=== PATIENT | female | born 1945 | race African-American/Black ===

== ENCOUNTER → 2016-07-21 | Outpatient (CLI) | payer MEDICARE, OTHER ==
--- NOTE | 2016-07-21 12:15 | WOMENS IMAGING REPORT ---
EXAM DESCRIPTION: BILAT SCREENING MAMMO W/CAD COMPLETED DATE/TIME: 07/21/2016 11:19 am REASON FOR STUDY: Z12.31 ROUTINE SCREENING MAMMO Z12.31 ENCNTR SCREEN MAMMOGRAM FOR MALIGNANT NEOPL ASM OF DUARTE COMPARISON: 2008 to 2014 TECHNIQUE: Standard craniocaudal and mediolateral oblique views of each breast recorded using Dabblea l acquisition. LIMITATIONS: None. FINDINGS: No masses, calcifications or architectural distortion. No areas of suspicion. Read with the assistance of CAD. .[facility] - R2 Cenova Version 1.3 .[facility] Imaging - R2 Cenova Version 1.3 .[facility] - R2 Cenova Version 2.4 .[facility] - R2 Cenova Version 2.4 .[facility] - R2 Openstack Developer Version 9.2 BREAST DENSITY: b. There are scattered areas of fibroglandular density. BIRAD: 1 NEGATIVE RECOMMENDATION: ROUTINE SCREENING COMMENT: PATIENT NOTIFIED BY LETTER. The [employer] recommends an annual screening mammogram for women aged 40 years or over. Each patient will receive a reminder prior to the anniversary date of her mammogram. The [employer] (ACR) has developed recommendations for screening MRI of the breast s in certain patient populations, to be used in conjunction with mammography. Breast MRI surveillanc e may be appropriate for women with more than 20% lifetime risk of developing breast cancer as deter mined by genetic testing, significant family history of the disease, or history of mantle radiation f or Hodgkins Disease. ACR Practice Guidelines 2008. TECHNICAL DOCUMENTATION: FINDING NUMBER: (1) ASSESSMENT: (1) JOB ID: [id number] [employer]- All Rights Reserved
== END ==
LOC: WI 10:01
PROVIDERS: ATTEND Internal Medicine
DX: Z12.31 Encounter for screening mammogram for malignant neoplasm of breast (principal)
CPT/HCPCS: 77067; G0202

== ENCOUNTER → 2016-09-30 | Outpatient (CLI) | payer MEDICARE, OTHER | LOC: RAD 07:35 | PROVIDERS: ATTEND Internal Medicine Gastroenterology | DX: R93.2 Abnormal findings on diagnostic imaging of liver and biliary tract (principal); D18.09 Hemangioma of other sites; Q61.02 Congenital multiple renal cysts | CPT/HCPCS: 74183; A9576 ==

== ENCOUNTER → 2017-02-12 | Outpatient (CLI) | payer MEDICARE, OTHER ==
--- NOTE | 2017-02-12 10:38 | WOMENS IMAGING REPORT ---
EXAM DESCRIPTION: BONE DENSITY HIP/SPINE COMPLETED DATE/TIME: 02/12/2017 9:53 am REASON FOR STUDY: AGE RELATED OSTEOPROSIS; M81.0 M81.0 AGE-RELATED OSTEOPOROSIS W/O CURRENT SUDHEEROLO RUCHI FRA COMPARISON: 06/05/2013 12/21/2005 TECHNIQUE: Dual-Energy X-ray Absorptiometry (DEXA) of the AP Spine and Hip. LIMITATIONS: None. FINDINGS: LUMBAR SPINE: The bone mineral density (BMD) measured from L1-L4 in the AP projection correlates with a T-score of 3.9, which is normal as defined by the World Health Organization. HIP: The bone mineral density (BMD) measured in the left hip correlates with a T-score of 0.7 in the femor al neck, which is normal as defined by the World Health Organization. IMPRESSION: 1. LUMBAR SPINE: Normal 2. HIP: Normal COMMENT: The World Health Organization defines low BMD as follows: T-score: Normal: Greater than -1.0 Osteopenia: Between -1.0 and -2.5 Osteoporosis: Less than -2.5 without fractures Established osteoporosis: Less than -2.5 with fractures In general, you may wish to consider: Diagnosis Treatment Follow-up DEXA Normal BMD Prevention 2-3 years Osteopenia Prevention/Therapy 1-2 years Osteoporosis Therapy Yearly TECHNICAL DOCUMENTATION: JOB ID: [id number]- All Rights Reserved
== END ==
LOC: WI 08:53
PROVIDERS: ATTEND Internal Medicine
DX: M81.0 Age-related osteoporosis without current pathological fracture (principal)
CPT/HCPCS: 77080

== ENCOUNTER → 2017-10-26 | Outpatient (CLI) | payer MEDICARE, OTHER ==
--- NOTE | 2017-10-26 14:39 | WOMENS IMAGING REPORT ---
EXAM DESCRIPTION: BILAT SCREENING MAMMO W/CAD COMPLETED DATE/TIME: 10/26/2017 11:09 am REASON FOR STUDY: ROUTINE SCREENING;Z12.31 Z12.31 ENCNTR SCREEN MAMMOGRAM FOR MALIGNANT NEOPLASM OF DUARTE COMPARISON: [id number] TECHNIQUE: Standard craniocaudal and mediolateral oblique views of each breast recorded using Work Inspirea l acquisition. LIMITATIONS: None. FINDINGS: No masses, calcifications or architectural distortion. No areas of suspicion. Read with the assistance of CAD. .[facility] - R2 Cenova Version 1.3 .[facility] Imaging - R2 Cenova Version 1.[address] Imaging - R2 Cenova Version 2.4 .[facility] - R2 Cenova Version 2.4 .[facility] - R2 Microbiology Lab Technician Version 9.2 IMPRESSION: NORMAL MAMMOGRAM. BIRADS 1. BREAST DENSITY: b. There are scattered areas of fibroglandular density. BIRAD: 1 NEGATIVE RECOMMENDATION: ROUTINE SCREENING COMMENT: The patient has been notified of the results by letter per [place] requirements. Additional no tification policies are in place for contacting patient with suspicious or incomplete findings. Quality ID #[id number]: The [employer] recommends an annual screening mammogram for women aged 40 years or over. This facility utilizes a reminder system to ensure that all patients receive reminder letters, and/or direct phone calls for appointments. This includes reminders for routine scr eening mammograms, diagnostic mammograms, or other Breast Imaging Interventions when appropriate. Th is patient will be placed in the appropriate reminder system. The [employer] (ACR) has developed recommendations for screening MRI of the breast s in certain patient populations, to be used in conjunction with mammography. Breast MRI surveillanc e may be appropriate for women with more than 20% lifetime risk of developing breast cancer as deter mined by genetic testing, significant family history of the disease, or history of mantle radiation f or Hodgkins Disease. ACR Practice Guidelines 2008. TECHNICAL DOCUMENTATION: FINDING NUMBER: (1) ASSESSMENT: (1) JOB ID: [id number] [employer]- All Rights Reserved Reading location - IP/workstation name: [email or web address]
== END ==
LOC: WI 10:33
PROVIDERS: ATTEND Internal Medicine
DX: Z12.31 Encounter for screening mammogram for malignant neoplasm of breast (principal)
CPT/HCPCS: 77067

== ENCOUNTER → 2018-02-11 | Outpatient (CLI) | payer MEDICARE, OTHER | LOC: RAD 06:48 | PROVIDERS: ATTEND Internal Medicine Gastroenterology | DX: D18.03 Hemangioma of intra-abdominal structures (principal); R93.2 Abnormal findings on diagnostic imaging of liver and biliary tract | CPT/HCPCS: 82565 ==

== ENCOUNTER → 2019-01-26 | Outpatient (CLI) | payer MEDICARE, OTHER ==
--- NOTE | 2019-01-26 12:12 | WOMENS IMAGING REPORT ---
EXAM DESCRIPTION: BILAT SCREENING MAMMO W/CAD COMPLETED DATE/TIME: 01/26/2019 11:59 am REASON FOR STUDY: Z12.31 ENCOUNTER FOR SCREENING MAMMOGRAM FOR MALIGNANT NEOPLASM OF BREAST Z12.31 ENCNTR SCREEN MAMMOGRAM FOR MALIGNANT NEOPLASM OF [place]TE COMPARISON: 10/26/2017 and 07/21/2016. EXAM PARAMETERS: Standard craniocaudal and mediolateral oblique views of each breast recorded using digital acquisition. Read with the assistance of CAD. .[facility] - R2 Neurophysiologist Version 9.2 LIMITATIONS: None. FINDINGS: No suspicious masses, suspicious calcifications or architectural distortion. No areas of c oncern. IMPRESSION: Negative MAMMOGRAM. BIRADS 1 BREAST DENSITY: b. There are scattered areas of fibroglandular density. BIRAD: ASSESSMENT: 1 NEGATIVE RECOMMENDATION: ROUTINE SCREENING COMMENT: The patient has been notified of the results by letter per MQSA requirements. Additional no tification policies are in place for contacting patient with suspicious or incomplete findings. Quality ID #[id number]: The [employer] recommends an annual screening mammogram for women aged 40 years or over. This facility utilizes a reminder system to ensure that all patients receive reminder letters, and/or direct phone calls for appointments. This includes reminders for routine scr eening mammograms, diagnostic mammograms, or other Breast Imaging Interventions when appropriate. Th is patient will be placed in the appropriate reminder system. TECHNICAL DOCUMENTATION: FINDING NUMBER: (1) ASSESSMENT: (1) JOB ID: [id number] [employer]- All Rights Reserved Reading location - IP/workstation name: [email or web address]
== END ==
LOC: WI 11:02
PROVIDERS: ATTEND Physician Assistant Medical
DX: Z12.31 Encounter for screening mammogram for malignant neoplasm of breast (principal)
CPT/HCPCS: 77067

== ENCOUNTER 2019-04-04 11:43 | Inpatient (IN) | payer MEDICARE, OTHER ==
--- NOTE | 2019-04-04 11:59 | ER Document Report ---
ED Medical Screen (RME) - General Chief Complaint: Shortness Of Breath Stated Complaint: SHORTNESS OF BREATHE, WEAKNESS Time Seen by Provider: 04/04/19 11:56 Primary Care Provider: MELISSA LEBLANC PA-C [Primary Care Provider] - Follow up as needed Mode of Arrival: Wheelchair Information source: Patient Notes: 73-year-old female presents to ED for weakness metastatic cancer she has a history of liver cancer but is now terminal. She states she is not able to eat she is been very dizzy she is fallen several times in the last [place] couple weeks. Dr. Farris has sent the patient to the emergency room to be admitted. She states that they took her half her liver and her gallbladder out but did cancer is metastatic all over. She is alert oriented but in pain. I have greeted and performed a rapid initial assessment of this patient. A comprehensive ED assessment and evaluation of the patient, analysis of test results and completion of medical decision making process will be conducted by an additional ED providers. TRAVEL OUTSIDE OF THE [place] IN LAST 30 DAYS: No - Related Data Allergies/Adverse Reactions: erythromycin base [Erythromycin Base] Allergy (Verified 04/04/19 11:54) Nausea Past Medical History - Past Medical History Cardiac Medical History: Reports: Hx Hypertension - diovan Denies: Hx Heart Attack Pulmonary Medical History: Denies: Hx Asthma Neurological Medical History: Denies: Hx Cerebrovascular Accident, Hx Seizures GI Medical History: Reports: Hx Ulcer. Denies: Hx Hepatitis, Hx Hiatal Hernia Infectious Medical History: Denies: Hx Hepatitis Past Surgical History: Reports: Hx Hysterectomy. Denies: Hx Mastectomy, Hx Open Heart Surgery, Hx Pacemaker Doctor's Discharge - Discharge Referrals: MELISSA LEBLANC PA-C [Primary Care Provider] - Follow up as needed
[2019-04-04] MEDS ORDERED: NORMAL SALINE IV ONE (13:19)
--- NOTE | 2019-04-04 14:02 | RADIOLOGY REPORT (SQ) ---
EXAM DESCRIPTION: CHEST SINGLE VIEW COMPLETED DATE/TIME: 04/04/2019 1:53 pm REASON FOR STUDY: Short of breath week vomiting COMPARISON: AP view of the chest from 03/18/2011. EXAM PARAMETERS: NUMBER OF VIEWS: One view. TECHNIQUE: Single frontal radiographic view of the chest acquired. RADIATION DOSE: NA LIMITATIONS: None. FINDINGS: The cardiomediastinal silhouette and pulmonary vasculature are within normal limits. Ther e is no consolidation, pleural effusion or pneumothorax. There is no acute abnormality of the imaged osseous structures. IMPRESSION: No acute cardiopulmonary process. TECHNICAL DOCUMENTATION: JOB ID: [id number] [employer]- All Rights Reserved Reading location - IP/workstation name: [email or web address]
[2019-04-04 14:07] LABS: ABSOLUTE EOSINOPHILS # (AUTO) 0.1 10^3/uL (0.0-0.6); ABSOLUTE LYMPHOCYTES (AUTO) 0.7 10^3/uL (0.5-4.7); ABSOLUTE MONOCYTES (AUTO) 0.7 10^3/uL (0.1-1.4); ABSOLUTE NEUT (AUTO) 4.6 10^3/uL (1.7-8.2); BASOPHILS % (AUTO) 0.7 % (0-2); HEMATOCRIT 32.8 % (36.0-47.0); HEMOGLOBIN 10.8 g/dL (12.0-15.5); MEAN CORPUSCULAR HEMOGLOBIN 27.7 pg (27.0-33.4); MEAN CORPUSCULAR HGB CONC 33.1 g/dL (32.0-36.0); MEAN CORPUSCULAR VOLUME 84 fl (80-97); MONOCYTES % (AUTO) 11.3 % (3-13); PLATELET COUNT 429 10^3/uL (150-450); RED BLOOD COUNT 3.91 10^6/uL (3.72-5.28); RED CELL DISTRIBUTION WIDTH 20.9 % (11.5-14.0); TOTAL CELLS COUNTED % (AUTO) 100 %; WHITE BLOOD COUNT 6.1 10^3/uL (4.0-10.5)
[2019-04-04 14:25] LABS: ALBUMIN 2.8 g/dL (3.5-5.0); ALKALINE PHOSPHATASE 288 U/L (38-126); ANION GAP 10 (5-19); ASPARTATE AMINO TRANSFERASE 38 U/L (14-36); BILIRUBIN,DIRECT 0.6 mg/dL (0.0-0.4); BILIRUBIN,TOTAL 1.4 mg/dL (0.2-1.3); BLOOD UREA NITROGEN 33 mg/dL (7-20); CALCIUM 10.1 mg/dL (8.4-10.2); CARBON DIOXIDE 26 mmol/L (22-30); CHLORIDE 100 mmol/L (98-107); GLUCOSE 96 mg/dL (75-110); POTASSIUM 3.4 mmol/L (3.6-5.0); TOTAL PROTEIN 7.9 g/dL (6.3-8.2)
--- NOTE | 2019-04-04 15:06 | ER Document Report ---
ED General - General Chief Complaint: Weakness Stated Complaint: SHORTNESS OF BREATHE, WEAKNESS Time Seen by Provider: 04/04/19 11:56 Primary Care Provider: MELISSA LEBLANC PA-C [Primary Care Provider] - Follow up as needed Mode of Arrival: Wheelchair TRAVEL OUTSIDE OF THE [place] IN LAST 30 DAYS: No - HPI Notes: Patient has stage IV liver cancer and is currently on chemotherapy. Patient presents stating that she feels very weak. She is also having some diffuse body aches. She states this is been going on for several days. The pain and weakness to radiate throughout her body. It is worse with exertion and better with rest. It is severe. She states she just finished a round of chemotherapy in [place]. She states she spoke to Dr. Drake cleary and he recommended that she come to the hospital. Patient denies any dysuria urgency or frequency. No rashes. She has had some nausea no significant vomiting. She has also had some loose stool. - Related Data Allergies/Adverse Reactions: erythromycin base [Erythromycin Base] Allergy (Verified 04/04/19 11:54) Nausea Past Medical History - General Information source: Patient - Social History Smoking Status: Never Smoker Chew tobacco use (# tins/day): No Frequency of alcohol use: None Drug Abuse: None Family History: Reviewed & Not Pertinent Patient has suicidal ideation: No Patient has homicidal ideation: No - Past Medical History Cardiac Medical History: Reports: Hx Hypertension - diovan Denies: Hx Heart Attack Pulmonary Medical History: Denies: Hx Asthma Neurological Medical History: Denies: Hx Cerebrovascular Accident, Hx Seizures GI Medical History: Reports: Hx Ulcer. Denies: Hx Hepatitis, Hx Hiatal Hernia Infectious Medical History: Denies: Hx Hepatitis Past Surgical History: Reports: Hx Hysterectomy. Denies: Hx Mastectomy, Hx Open Heart Surgery, Hx Pacemaker Review of Systems - Review of Systems Constitutional: Malaise, Weakness. denies: Chills, Fever Cardiovascular: denies: Chest pain, Palpitations Respiratory: denies: Cough, Short of breath Gastrointestinal: Abdominal pain, Nausea -: Yes All other systems reviewed and negative Physical Exam - Vital signs Interpretation: Hypotensive - Blood pressures been approximately 100 systolic. Patient has not been tachycardic. - General General appearance: Appears well, Alert - HEENT Head: Normocephalic, Atraumatic Eyes: Normal Pupils: PERRL - Respiratory Respiratory status: No respiratory distress Chest status: Nontender Breath sounds: Normal Chest palpation: Normal - Cardiovascular Rhythm: Regular Heart sounds: Normal auscultation Murmur: No - Abdominal Inspection: Normal Distension: No distension Bowel sounds: Normal Tenderness: Nontender Organomegaly: No organomegaly - Back Back: Normal, Nontender - Extremities General upper extremity: Normal inspection, Nontender, Normal color, Normal ROM, Normal temperature General lower extremity: Normal inspection, Nontender, Normal color, Normal ROM, Normal temperature, Normal weight bearing. No: Joyce's sign - Neurological Neuro grossly intact: Yes Cognition: Normal Orientation: AAOx4 [place] Coma Scale Eye Opening: Spontaneous Hi Coma Scale Verbal: Oriented [place] Coma Scale Motor: Obeys Commands Hi Coma Scale Total: 15 Speech: Normal Motor strength normal: LUE, RUE, LLE, RLE Sensory: Normal - Psychological Associated symptoms: Normal affect, Normal mood - Skin Skin Temperature: Warm Skin Moisture: Dry Skin Color: Normal Course - Re-evaluation Re-evalutation: 04/04/19 15:07 Patient has stage IV liver cancer and has been having a hard time keeping fluids down as well as having no appetite. She states that she feels very weak. Blood pressure here is a proximal 100 systolic. She does not have a fever or white count. I do not find evidence of infection at this time. However lactate and blood cultures are pending. I did speak with Dr. Juan who recommends admission. The hospitalist has accepted the patient for admission. She will be hydrated with fluids. - Laboratory Result Diagrams: 04/04/19 12:45 04/04/19 12:45 Laboratory results interpreted by me: 04/04/19 04/04/19 12:45 12:45 Hgb 10.8 L Hct 32.8 L RDW 20.9 H Lymph % (Auto) 12.0 L Sodium 135.6 L Potassium 3.4 L BUN 33 H Creatinine 1.42 H Est GFR ( Amer) 44 L Est GFR (MDRD) Non-Af 36 L Total Bilirubin 1.4 H Direct Bilirubin 0.6 H AST 38 H Alkaline Phosphatase 288 H Albumin 2.8 L - Diagnostic Test Radiology reviewed: Image reviewed, Reports reviewed - EKG Interpretation by Me EKG shows normal: Sinus rhythm Rate: Normal - 97 Rhythm: NSR Scott/QRS: Left axis deviation Discharge - Discharge Clinical Impression: Dehydration, Weakness Liver cancer Qualifiers: Liver malignancy type: unspecified primary liver malignancy Qualified Code(s): C22.8 - Malignant neoplasm of liver, primary, unspecified as to type Condition: Serious Disposition: ADMITTED INPATIENT Admitting Provider: Duyen (Hospitalist) - Don Day to do admission Unit Admitted: Medical Floor Referrals: MELISSA LEBLANC PA-C [Primary Care Provider] - Follow up as needed
[2019-04-04] MEDS ORDERED: ONDANSETRON 4 MG TAB.RAPDIS PO PRN (15:37)
[2019-04-04] MEDS ORDERED: ONDANSETRON HCL INJ/PF 4 MG/2 ML SDV IV PRN (15:37)
[2019-04-04] MEDS ORDERED: MORPHINE SULFATE 10 MG/ML INJ IV ONE (15:41)
[2019-04-04] MEDS ORDERED: ONDANSETRON 4 MG TAB.RAPDIS PO ONE (15:42)
[2019-04-04 15:48] LABS: VENOUS BLOOD BASE EXCESS 1.6 mmol/L; VENOUS BLOOD HCO3 26.9 mmol/L (20-32); VENOUS BLOOD PCO2 44.8 mmHg (35-63); VENOUS BLOOD PH 7.4 (7.30-7.42)
[2019-04-04] MEDS ORDERED: GLUCAGON,HUMAN RECOMB 1 MG INJ IM PRN (15:52)
[2019-04-04] MEDS ORDERED: DEXTROSE 50%-WATER 25 GM/50 ML DISP.SYRIN IV PRN (15:52)
[2019-04-04] MEDS ORDERED: DEXTROSE 40% GEL 15 GM TUBE PO PRN ×2 (15:52)
--- NOTE | 2019-04-04 16:04 | PDOC H&P ---
History of Present Illness Admission Date/PCP: MELISSA LEBLANC PA-C 73-year-old black female admitted today April 04, 2019, weakness and fatigue History of Present Illness: FREDY ABERNATHY is a 73 year old female who for the last several days has been increasing weakness and fatigue. She is also complained of some diffuse body aches. Patient has denied fever or dysuria. Patient has stage IV liver cancer and just recently finished chemotherapy. She has complained of a decreased appe tite and nausea but no vomiting. Patient's oncologist recommended that she come to the hospital for several days of hydration and further evaluation to rule out infection. His other medical conditions include diabetes, hypertension Past Medical History Cardiac Medical History: Reports: Hypertension - diovan Denies: Myocardial Infarction Pulmonary Medical History: Denies: Asthma Neurological Medical History: Denies: Seizures Endocrine Medical History: Reports: Diabetes Mellitus Type 2 Malignancy Medical History: Reports: Liver Cancer GI Medical History: Denies: Hepatitis, Hiatal Hernia Psychiatric Medical History: Reports: None Hematology: Denies: Anemia, Sickle Cell Disease Past Surgical History Past Surgical History: Reports: Cholecystectomy, Hysterectomy Denies: Amputation, Mastectomy, Pacemaker Social History Smoking Status: Never Smoker - Advance Directive Resuscitation Status: Full Code Family History Family History: Reviewed & Not Pertinent Parental Family History Reviewed: No Children Family History Reviewed: No Sibling(s) Family History Reviewed.: No Medication/Allergy Home Medications: Alendronate Sodium [Fosamax] 70 mg PO DAILY 05/11/11 Aspirin [Aspirin 81 mg Chewable Tablet] 81 mg PO DAILY 05/11/11 Diovan Hct 80-12.5 mg Tablet 1 PO 05/11/11 Esomeprazole Mag Trihydrate [Nexium] 40 mg PO DAILY 05/11/11 Flonase Nasal [place] 50 Mcg/[place] 1 NASL DAILY 05/11/11 Gluc Soriano/Chondro Soriano A/Vit C/Mn [Glucosamine 1,500 Complex Cap] 1 PO 05/11/11 Levothyroxine Sodium [Synthroid] 125 mcg PO DAILY 05/11/11 [place]-3 Fatty Acids/Fish Oil [Fish Oil 1,200 mg Softgel] PO 05/11/11 Allergies/Adverse Reactions: erythromycin base [Erythromycin Base] Allergy (Verified 04/04/19 11:54) Nausea Review of Systems Constitutional: PRESENT: anorexia, weakness. ABSENT: chills, fever(s), headache(s), weight gain, weight loss Cardiovascular: ABSENT: chest pain, dyspnea on exertion, edema, orthropnea, palpitations Respiratory: ABSENT: cough, hemoptysis Gastrointestinal: PRESENT: nausea. ABSENT: abdominal pain, constipation, diarrhea, hematemesis, hematochezia, vomiting Genitourinary: PRESENT: other - Strong odor to urine. ABSENT: dysuria, hematuria Neurological: ABSENT: abnormal gait, abnormal speech, confusion, dizziness, focal weakness, syncope Psychiatric: ABSENT: anxiety, depression, homidical ideation, suicidal ideation Physical Exam Vital Signs: Temp Pulse Resp BP Pulse Ox 97.6 F 13 121/87 H 68 L 04/04/19 13:38 04/04/19 15:01 04/04/19 15:01 04/04/19 14:01 Intake & Output 04/03/19 04/04/19 04/05/19 06:59 06:59 06:59 Weight 93.7 kg General appearance: PRESENT: mild distress, other - Just some generalized weakn ess Respiratory exam: PRESENT: clear to auscultation gricel. ABSENT: rales, rhonchi, wheezes Cardiovascular exam: PRESENT: RRR. ABSENT: diastolic murmur, rubs, systolic murmur Neurological exam: PRESENT: alert, awake, oriented to person, oriented to place, oriented to time, oriented to situation, CN II-XII grossly intact. ABSENT: motor sensory deficit Psychiatric exam: PRESENT: flat affect Results Laboratory Results: 04/04/19 12:45 04/04/19 12:45 04/04/19 04/04/19 12:45 12:45 WBC 6.1 RBC 3.91 Hgb 10.8 L Hct 32.8 L MCV 84 MCH 27.7 MCHC 33.1 RDW 20.9 H Plt Count 429 Seg Neutrophils % 75.0 Sodium 135.6 L Potassium 3.4 L Chloride 100 Carbon Dioxide 26 Anion Gap 10 BUN 33 H Creatinine 1.42 H Est GFR ( Amer) 44 L Glucose 96 Calcium 10.1 Total Bilirubin 1.4 H AST 38 H Alkaline Phosphatase 288 H Total Protein 7.9 Albumin 2.8 L Lipase 62.2 04/04/19 12:45 Troponin I < 0.012 Impressions: Chest X-Ray 04/04/19 11:56 IMPRESSION: No acute cardiopulmonary process. Assessment and Plan - Diagnosis (1) Hypertension Is this a current diagnosis for this admission?: Yes Plan: 04/04/2019 patient had no medicines from home and her bag with her for high blood pressure however in the chart home medicines include Diovan HCT 8012.5 In the emergency room blood pressure 104/71, 98/83, 121/87. Blood pressure meds will be held until she has received more fluids (2) Diabetes Is this a current diagnosis for this admission?: Yes Plan: 04/04/2019 no home medicines were seen in the chart concerning diabetes but she did have a bottle of metformin 500 mg twice daily. Hemoglobin A1c is pending (3) Dehydration Is this a current diagnosis for this admission?: Yes Plan: Patient does appear to be dehydrated with dry mucous membranes and complains of decreased appetite and intake of sodium 135 potassium 3.4 BUN of 33 and creatinine 1.42 Patient will receive gentle hydration. (4) Liver cancer Qualifiers: Liver malignancy type: unspecified primary liver malignancy Qualified Code(s): C22.8 - Malignant neoplasm of liver, primary, unspecified as to type Is this a current diagnosis for this admission?: Yes Plan: 04/04/2019 reportedly patient has stage IV liver cancer. Patient tells me that all is been done that can be done for her illness. In the chart reportedly she did receive chemotherapy recently (5) Weakness Is this a current diagnosis for this admission?: Yes Plan: 119 patient is weak secondary to decreased p.o. intake and possibly UTI - Time Time Spent with patient: 35 or more minutes
[2019-04-04] MEDS: INSULIN LISPRO 100 UNIT/ML 3 ML VIAL SUBCUT SCH ×2 (16:16→21:43)
[2019-04-04 16:29] LABS: INTERNATIONAL RATION (INR) 1.22; PROTHROMBIN TIME 15.5 SEC (11.4-15.4)
[2019-04-04 16:30] LABS: PARTIAL THROMBOPLASTIN TIME 37.6 SEC (23.5-35.8)
[2019-04-04] MEDS: POTASSI CL 20 MEQ/1/2NS 1L 20 MEQ/1,000 ML RTUINJ IV PRN (17:54)
[2019-04-04] MEDS: CEFTRIAXONE 1 GM/D5W RTU 1 GM/50 ML RTUPB IV SCH (20:06)
[2019-04-04] MEDS: METFORMIN HCL 500 MG TABLET PO SCH (20:15)
--- NOTE | 2019-04-04 20:52 | EKG REPORT ---
SEVERITY:- ABNORMAL ECG - SINUS RHYTHM LEFT AXIS DEVIATION NONSPECIFIC T ABNORMALITIES, LATERAL LEADS : Confirmed by: Jeri Saenz MD 04-Apr-2019 20:52:34
[2019-04-04] MEDS ORDERED: MORPHINE SULFATE 10 MG/ML INJ IV PRN ×2 (21:25→21:32)
[2019-04-04] MEDS: MORPHINE SULFATE 10 MG/ML INJ IV PRN (21:41)
[2019-04-04] MEDS: SIMVASTATIN 40 MG TABLET PO SCH (21:42)
[2019-04-04] MEDS: FAMOTIDINE 20 MG TABLET PO SCH (21:42)
[2019-04-04] MEDS: HEPARIN SOD (PORCINE) 5,000 UNIT/ML 1 ML VIAL SUBCUT SCH (21:43)
[2019-04-05] MEDS: POTASSI CL 20 MEQ/1/2NS 1L 20 MEQ/1,000 ML RTUINJ IV PRN ×3 (03:28→17:12)
[2019-04-05 06:03] LABS: APPEARANCE,URINE SLIGHTLY-CLOUDY; BILIRUBIN,URINE SMALL (NEGATIVE); COLOR,URINE AMBER; GLUCOSE, URINE NEGATIVE (NEGATIVE); KETONES,URINE TRACE mg/dL (NEGATIVE); LEUKOCYTE ESTERASE,URINE NEGATIVE (NEGATIVE); NITRITE,URINE NEGATIVE (NEGATIVE); PROTEIN,URINE 100 mg/dL (NEGATIVE); URINE SPECIFIC GRAVITY 1.023
[2019-04-05] MEDS: HEPARIN SOD (PORCINE) 5,000 UNIT/ML 1 ML VIAL SUBCUT SCH ×3 (06:42→21:12)
[2019-04-05 06:44] LABS: ABSOLUTE EOSINOPHILS # (AUTO) 0.1 10^3/uL (0.0-0.6); ABSOLUTE LYMPHOCYTES (AUTO) 0.7 10^3/uL (0.5-4.7); ABSOLUTE MONOCYTES (AUTO) 0.7 10^3/uL (0.1-1.4); ABSOLUTE NEUT (AUTO) 3.9 10^3/uL (1.7-8.2); BASOPHILS % (AUTO) 0.5 % (0-2); EOSINOPHILS % (AUTO) 1.1 % (0-6); HEMATOCRIT 31.2 % (36.0-47.0); HEMOGLOBIN 10.2 g/dL (12.0-15.5); LYMPHOCYTES % (AUTO) 13.3 % (13-45); MEAN CORPUSCULAR HEMOGLOBIN 27.5 pg (27.0-33.4); MEAN CORPUSCULAR HGB CONC 32.8 g/dL (32.0-36.0); MEAN CORPUSCULAR VOLUME 84 fl (80-97); PLATELET COUNT 359 10^3/uL (150-450); RED BLOOD COUNT 3.72 10^6/uL (3.72-5.28); RED CELL DISTRIBUTION WIDTH 21.3 % (11.5-14.0); SEGMENTED NEUTROPHILS % (AUTO) 72.1 % (42-78); TOTAL CELLS COUNTED % (AUTO) 100 %; WHITE BLOOD COUNT 5.4 10^3/uL (4.0-10.5)
[2019-04-05] MEDS: LEVOTHYROXINE SODIUM 0.112 MG TABLET PO SCH (06:44)
[2019-04-05 07:03] LABS: ANION GAP 8 (5-19); BLOOD UREA NITROGEN 36 mg/dL (7-20); CALCIUM 9.4 mg/dL (8.4-10.2); CARBON DIOXIDE 26 mmol/L (22-30); CHLORIDE 102 mmol/L (98-107); GLUCOSE 87 mg/dL (75-110); POTASSIUM 3.6 mmol/L (3.6-5.0)
[2019-04-05] MEDS: INSULIN LISPRO 100 UNIT/ML 3 ML VIAL SUBCUT SCH ×4 (08:01→21:07)
[2019-04-05] MEDS: METFORMIN HCL 500 MG TABLET PO SCH ×2 (09:40→17:07)
[2019-04-05] MEDS: ASPIRIN 81 MG TABLET, ENT COATED PO SCH (09:42)
[2019-04-05] MEDS: FAMOTIDINE 20 MG TABLET PO SCH ×2 (09:42→21:12)
[2019-04-05] MEDS: SERTRALINE HCL 50 MG TABLET PO SCH (09:42)
[2019-04-05] MEDS ORDERED: (PENDING PHARMACY ID) (Sertraline Hcl [Zoloft] 25 MG) PO SCH (10:00)
[2019-04-05] MEDS: MORPHINE SULFATE 10 MG/ML INJ IV PRN (12:00)
[2019-04-05] MEDS: CEFTRIAXONE 1 GM/D5W RTU 1 GM/50 ML RTUPB IV SCH (17:12)
[2019-04-05] MEDS: SIMVASTATIN 40 MG TABLET PO SCH (21:12)
[2019-04-06] MEDS: POTASSI CL 20 MEQ/1/2NS 1L 20 MEQ/1,000 ML RTUINJ IV PRN ×2 (01:44→19:15)
[2019-04-06] MEDS: MORPHINE SULFATE 10 MG/ML INJ IV PRN ×2 (03:35→14:13)
[2019-04-06] MEDS: HEPARIN SOD (PORCINE) 5,000 UNIT/ML 1 ML VIAL SUBCUT SCH ×3 (05:31→21:24)
[2019-04-06] MEDS: LEVOTHYROXINE SODIUM 0.112 MG TABLET PO SCH (05:31)
[2019-04-06] MEDS ORDERED: INFLUENZA QUAD (6MOS+) 2019-20 VAC 0.5 ML SYR IM ONE (08:00)
--- NOTE | 2019-04-06 08:27 | PDOC CONSULTATION ---
Consultation Consult Date: 04/06/19 Attending physician:: JOSÉ MIGUEL CHANDRA Provider Consulted: ROHIT VÁSQUEZ Consult reason:: Known stage IV HCC, here with nausea vomiting dehydration and confusion History of Present Illness Admission Date/PCP: 04/04/19 16:20 MELISSA LEBLANC PA-C Patient complains of: Nausea vomiting, dehydration, confusion, weakness History of Present Illness: FREDY ABERNATHY is a 73 year old female with now about a year and a half histor of HCC, she was originally diagnosed at [place] with the liver metastasis, subsequently was transferred to [facility] and had embolization of the metastasis n because it was bleeding, we then saw her last year and referred her to [facility] in [place] because her son was living there. She was treated with liver resection, but earlier this year unfortunately had a recurrence. She then received some liver directed therapy in [place] as well, the last treatment was in 02/2019. Last month she had reimaging after that and unfortunately had further disease sites in the right paracolic area and left periaortic. Mostly lymphadenopathy. Over the last 3 to 4 weeks she has been complaining of nausea vomiting, dehydration and she did get treated for that at [place], but the patient primarily is always lived here and wanted to come back home. Unfortunately, here, she does not have any true close family support but she does have some friends who live close by. This morning she appears confused, she has some word finding issues, I believe both of these issues are uncommon for her from my previous interactions. However she is receiving morphine regularly here. This is for the pain that she was having and the pain is reasonable because she has disease in the back area that could be compressing nerves. Past Medical History Cardiac Medical History: Reports: Hypertension - diovan Denies: Myocardial Infarction Pulmonary Medical History: Denies: Asthma Neurological Medical History: Denies: Seizures Endocrine Medical History: Reports: Diabetes Mellitus Type 2 Malignancy Medical History: Reports: Liver Cancer GI Medical History: Denies: Hepatitis, Hiatal Hernia Psychiatric Medical History: Reports: None Hematology: Denies: Anemia, Sickle Cell Disease Past Surgical History Past Surgical History: Reports: Cholecystectomy, Hysterectomy Denies: Amputation, Mastectomy, Pacemaker Social History Information Source: Patient Smoking Status: Never Smoker Frequency of Alcohol Use: None Hx Recreational Drug Use: No - Advance Directive Resuscitation Status: Full Code Family History Family History: Reviewed & Not Pertinent Parental Family History Reviewed: Yes Children Family History Reviewed: Yes Sibling(s) Family History Reviewed.: Yes Medication/Allergy Home Medications: Aspirin [Ecotrin 81 mg EC Tablet] 81 mg PO DAILY 04/04/19 Esomeprazole Mag Trihydrate [Nexium] 40 mg PO DAILY 04/04/19 Hydrochlorothiazide [Hydrodiuril 12.5 mg Tablet] 12.5 mg PO DAILY 04/04/19 Levothyroxine Sodium [Synthroid 0.112 mg Tablet] 0.112 mg PO Q6AM 04/04/19 Metformin HCl [Glucophage 500 mg Tablet] 500 mg PO BID 04/04/19 Thompson-3/Dha/Epa/Fish Oil [Thompson-3 Fish Oil 1,200 mg Sfgl] 1,200 mg PO BID 04/04/19 Sertraline HCl [Zoloft] 25 mg PO DAILY 04/04/19 Simvastatin [Zocor 20 mg Tablet] 20 mg PO QHS 04/04/19 Valsartan [Diovan 80 mg Tablet] 80 mg PO DAILY 04/04/19 Allergies/Adverse Reactions: erythromycin base [Erythromycin Base] Allergy (Verified 04/04/19 11:54) Nausea Review of Systems Constitutional: ABSENT: chills, fever(s), headache(s), weight gain, weight loss Eyes: ABSENT: visual disturbances Ears: ABSENT: hearing changes Cardiovascular: ABSENT: chest pain, dyspnea on exertion, edema, orthropnea, palpitations Respiratory: ABSENT: cough, hemoptysis Gastrointestinal: ABSENT: abdominal pain, constipation, diarrhea, hematemesis, hematochezia, nausea, vomiting Genitourinary: ABSENT: dysuria, hematuria Musculoskeletal: ABSENT: joint swelling Integumentary: ABSENT: rash, wounds Neurological: ABSENT: abnormal gait, abnormal speech, confusion, dizziness, focal weakness, syncope Psychiatric: ABSENT: anxiety, depression, homidical ideation, suicidal ideation Endocrine: ABSENT: cold intolerance, heat intolerance, polydipsia, polyuria Hematologic/Lymphatic: ABSENT: easy bleeding, easy bruising Physical Exam Vital Signs: Temp Pulse Resp BP Pulse Ox 97.6 F 51 L 16 104/67 85 L 04/05/19 23:19 04/05/19 23:19 04/05/19 23:19 04/05/19 23:19 10/02/19 23:19 Intake & Output 04/05/19 04/06/19 04/07/19 06:59 06:59 06:59 Intake Total 3860 3558 Output Total 200 200 Balance 3660 3358 Weight 41.9 kg 96.7 kg General appearance: PRESENT: no acute distress, well-developed, well-nourished Head exam: PRESENT: atraumatic, normocephalic Eye exam: PRESENT: conjunctiva pink, EOMI, PERRLA. ABSENT: scleral icterus Ear exam: PRESENT: normal external ear exam Mouth exam: PRESENT: moist, tongue midline Neck exam: ABSENT: carotid bruit, JVD, lymphadenopathy, thyromegaly Respiratory exam: PRESENT: clear to auscultation gricel. ABSENT: rales, rhonchi, wheezes Cardiovascular exam: PRESENT: RRR. ABSENT: diastolic murmur, rubs, systolic murmur Pulses: PRESENT: normal dorsalis pedis pul Vascular exam: PRESENT: normal capillary refill GI/Abdominal exam: PRESENT: normal bowel sounds, soft. ABSENT: distended, guarding, mass, organolmegaly, rebound, tenderness Rectal exam: PRESENT: deferred Extremities exam: PRESENT: full ROM. ABSENT: calf tenderness, clubbing, pedal edema Neurological exam: PRESENT: alert, awake, oriented to person, oriented to place, oriented to time, oriented to situation, CN II-XII grossly intact. ABSENT: motor sensory deficit Psychiatric exam: PRESENT: appropriate affect, normal mood. ABSENT: homicidal ideation, suicidal ideation Skin exam: PRESENT: dry, intact, warm. ABSENT: cyanosis, rash Results Laboratory Results: 04/05/19 06:29 04/05/19 06:29 04/04/19 12:45 Troponin I < 0.012 Impressions: Chest X-Ray 04/04/19 11:56 IMPRESSION: No acute cardiopulmonary process. Assessment & Plan - Diagnosis (1) Liver cancer Qualifiers: Liver malignancy type: hepatocellular carcinoma Qualified Code(s): C22.0 - Liver cell carcinoma Is this a current diagnosis for this admission?: Yes Plan: Hepatocellular carcinoma, in the setting of a never drinker, and no hep C, her next consideration of care would be oral drug called Nexavar, we have discussed this before and she is discussed this at [facility], I spoke to her son about this and he did not really think that she would want that, I discussed it with her this morning and she is unsure about it but also intermittently confused. To that extent I would like to send her for an MRI of the brain today, I will get physical therapy involved as well. I will call her son and try and see what ultimate arrangements will be need to be made. - Time Time Spent: Greater than 70 Minutes - Inpatient Certification Based on my medical assessment, after consideration of the patient's comorbidities, presenting symptoms, or acuity I expect that the services needed warrant INPATIENT care.: Yes I certify that my determination is in accordance with my understanding of Medicare's requirements for reasonable and necessary INPATIENT services [42 CFR 412.3e].: Yes Medical Necessity: Need For Continuous Telemetry Monitoring, Risk of Complic ation if Not Cared For in Hospital
[2019-04-06] MEDS: INSULIN LISPRO 100 UNIT/ML 3 ML VIAL SUBCUT SCH ×4 (08:55→21:30)
[2019-04-06] MEDS ORDERED: ONDANSETRON HCL INJ/PF 4 MG/2 ML SDV IV PRN (09:00)
[2019-04-06] MEDS ORDERED: ONDANSETRON 4 MG TAB.RAPDIS PO PRN (09:00)
[2019-04-06] MEDS: SERTRALINE HCL 50 MG TABLET PO SCH (09:28)
[2019-04-06] MEDS: METFORMIN HCL 500 MG TABLET PO SCH ×2 (09:28→17:07)
[2019-04-06] MEDS: ASPIRIN 81 MG TABLET, ENT COATED PO SCH (09:29)
[2019-04-06] MEDS: FAMOTIDINE 20 MG TABLET PO SCH ×2 (09:29→21:24)
--- NOTE | 2019-04-06 11:45 | PDOC PROGRESS REPORT ---
Subjective Progress Note for:: 04/06/19 Subjective:: 04/06/2019 Patient was admitted for dehydration, weakness, decreased appetite and nausea Patient has a history of diabetes as well as hypertension. Also has a history of stage IV liver cancer. Reason For Visit: DEHYDRATION,STAGE IV LIVER CANCER,DIABETES, Physical Exam Vital Signs: Temp Pulse Resp BP Pulse Ox 97.4 F 91 16 110/71 92 04/06/19 07:57 04/06/19 07:57 04/06/19 07:57 04/06/19 07:57 04/06/19 07:57 Intake & Output 04/05/19 04/06/19 04/07/19 06:59 06:59 06:59 Intake Total 3860 3558 Output Total 200 200 Balance 3660 3358 Weight 41.9 kg 96.7 kg General appearance: PRESENT: no acute distress, other - Intermittent times of confusion Respiratory exam: PRESENT: clear to auscultation gricel. ABSENT: rales, rhonchi, wheezes Cardiovascular exam: PRESENT: RRR. ABSENT: diastolic murmur, rubs, systolic murmur Neurological exam: PRESENT: alert, altered Psychiatric exam: PRESENT: appropriate affect, normal mood. ABSENT: homicidal ideation, suicidal ideation Results Laboratory Results: 04/05/19 06:29 04/05/19 06:29 04/04/19 12:45 Troponin I < 0.012 Impressions: Chest X-Ray 04/04/19 11:56 IMPRESSION: No acute cardiopulmonary process. Assessment and Plan - Diagnosis (1) Hypertension Is this a current diagnosis for this admission?: Yes (2) Diabetes Is this a current diagnosis for this admission?: Yes (3) Dehydration Is this a current diagnosis for this admission?: Yes (4) Liver cancer Qualifiers: Liver malignancy type: hepatocellular carcinoma Qualified Code(s): C22.0 - Liver cell carcinoma Is this a current diagnosis for this admission?: Yes (5) Weakness Is this a current diagnosis for this admission?: Yes - Plan Summary Summary: 04/06/2019 labs today are actually stable, urine and blood cultures showed no growth in 24 hours, x-ray from admission shows no cardiopulmonary disease. Oncology has ordered a MRI of the brain which I agree with,to look for metastases. Continue IV fluids but decrease the rate to 100/h. 10 you sliding scale of insulin, continue IV Rocephin, - Time Time Spent with patient: 25-34 minutes
--- NOTE | 2019-04-06 16:29 | RADIOLOGY REPORT (SQ) ---
EXAM DESCRIPTION: MRI HEAD COMBO COMPLETED DATE/TIME: 04/06/2019 3:26 pm REASON FOR STUDY: CA METASTASIS COMPARISON: Chest film 04/04/2019 TECHNIQUE: Multiplanar imaging includes noncontrasted T1, T2, FLAIR, diffusion with ADC map and post gadolinium contrast T1 sequences. Images stored on PACS. CONTRAST TYPE AND DOSE: 15 mL Dotarem. RENAL FUNCTION: Not indicated. ACR Type II contrast agent associated with few, if any, unconfounded cases of NSF LIMITATIONS: Motion artifact throughout the study FINDINGS: There is motion artifact throughout the study. On images without motion artifact, patient has had an old left frontal craniotomy. There is a focal area of encephalomalacia left frontal cortex and subcortical region measuring about 2 cm in diameter. Superior to this area of encephalomalacia, there is a single enhancing cortical nodule about 5 mm i n size on axial series 11, image 21. This is abnormal but nonspecific. In the proper clinical setti ng this could represent either a tiny cortical infarct or tiny metastatic lesion. Remainder of the study is severely degraded by patient motion artifact. No large territory acute isc hemic change. No gross midline shift or mass effect. IMPRESSION: Very limited study due to motion artifact. Old left frontal craniotomy with 2 cm area of encephalomalacia in the anterior left frontal lobe. Soriano perior to this area, a 5 mm enhancing left frontal cortical nodule is present. This could represent a tiny metastatic lesion. Tiny cortical infarct is possible. Repeat MRI is recommended when the patient is able to comply with imaging. EVIDENCE OF ACUTE STROKE: No large territory infarct. Findings as above. TECHNICAL DOCUMENTATION: JOB ID: [id number] [employer]- All Rights Reserved Reading location - IP/workstation name: [email or web address]
[2019-04-06] MEDS: CEFTRIAXONE 1 GM/D5W RTU 1 GM/50 ML RTUPB IV SCH (17:30)
[2019-04-06] MEDS: SIMVASTATIN 40 MG TABLET PO SCH (21:23)
[2019-04-07] MEDS: HEPARIN SOD (PORCINE) 5,000 UNIT/ML 1 ML VIAL SUBCUT SCH ×3 (06:14→22:20)
[2019-04-07] MEDS: POTASSI CL 20 MEQ/1/2NS 1L 20 MEQ/1,000 ML RTUINJ IV PRN ×2 (06:18→17:50)
[2019-04-07] MEDS: LEVOTHYROXINE SODIUM 0.112 MG TABLET PO SCH (06:18)
[2019-04-07] MEDS: INSULIN LISPRO 100 UNIT/ML 3 ML VIAL SUBCUT SCH ×4 (07:56→22:20)
[2019-04-07] MEDS: DEXTROSE 50%-WATER 25 GM/50 ML DISP.SYRIN IV PRN ×2 (07:58→16:24)
--- NOTE | 2019-04-07 08:54 | PDOC PROGRESS REPORT ---
Subjective Progress Note for:: 04/07/19 Subjective:: Patient still very confused this morning, [facility] is planning to meet son tomorrow morning. MRI was done but there was a lot of motion artifact because patient was moving quite a bit, there is seems to be either a small area of metastasis versus infarct. Recommended to hospitalist team to consider better sedating her to go ahead and get the MRI so that we have an answer on this for family. Reason For Visit: DEHYDRATION,STAGE IV LIVER CANCER,DIABETES, Physical Exam Vital Signs: Temp Pulse Resp BP Pulse Ox 97.4 F 96 16 108/60 94 04/07/19 01:01 04/07/19 01:01 04/07/19 01:01 04/07/19 01:01 04/07/19 01:01 Intake & Output 04/06/19 04/07/19 04/08/19 06:59 06:59 06:59 Intake Total 3558 2404 Output Total 200 225 Balance 3358 2179 Weight 96.7 kg 95.8 kg General appearance: PRESENT: no acute distress, well-developed, well-nourished Head exam: PRESENT: atraumatic, normocephalic Eye exam: PRESENT: conjunctiva pink, EOMI, PERRLA. ABSENT: scleral icterus Ear exam: PRESENT: normal external ear exam Mouth exam: PRESENT: moist, tongue midline Neck exam: ABSENT: carotid bruit, JVD, lymphadenopathy, thyromegaly Respiratory exam: PRESENT: clear to auscultation gricel. ABSENT: rales, rhonchi, wheezes Cardiovascular exam: PRESENT: RRR. ABSENT: diastolic murmur, rubs, systolic murmur Pulses: PRESENT: normal dorsalis pedis pul Vascular exam: PRESENT: normal capillary refill GI/Abdominal exam: PRESENT: normal bowel sounds, soft. ABSENT: distended, guarding, mass, organolmegaly, rebound, tenderness Rectal exam: PRESENT: deferred Extremities exam: PRESENT: full ROM. ABSENT: calf tenderness, clubbing, pedal edema Neurological exam: PRESENT: alert, awake, oriented to person, oriented to place, oriented to time, oriented to situation, CN II-XII grossly intact. ABSENT: motor sensory deficit Psychiatric exam: PRESENT: appropriate affect, normal mood. ABSENT: homicidal ideation, suicidal ideation Skin exam: PRESENT: dry, intact, warm. ABSENT: cyanosis, rash Results Laboratory Results: 04/05/19 06:29 04/05/19 06:29 04/04/19 12:45 Troponin I < 0.012 Impressions: Chest X-Ray 04/04/19 11:56 IMPRESSION: No acute cardiopulmonary process. Head MRI 04/06/19 00:00 IMPRESSION: Very limited study due to motion artifact. Old left frontal craniotomy with 2 cm area of encephalomalacia in the anterior left frontal lobe. Superior to this area, a 5 mm enhancing left frontal cortical nodule is present. This could represent a tiny metastatic lesion. Tiny cortical infarct is possible. Repeat MRI is recommended when the patient is able to comply with imaging. EVIDENCE OF ACUTE STROKE: No large territory infarct. Findings as above. Assessment & Plan - Diagnosis (1) Liver cancer Qualifiers: Liver malignancy type: hepatocellular carcinoma Qualified Code(s): C22.0 - Liver cell carcinoma Is this a current diagnosis for this admission?: Yes Plan: MRI of the brain repeat today most likely, hospice meeting tomorrow with family, today spent 45 minutes in discussion and coordination of care.
[2019-04-07] MEDS: METFORMIN HCL 500 MG TABLET PO SCH ×2 (09:36→17:12)
[2019-04-07] MEDS: ASPIRIN 81 MG TABLET, ENT COATED PO SCH (09:37)
[2019-04-07] MEDS: FAMOTIDINE 20 MG TABLET PO SCH ×2 (09:37→22:21)
[2019-04-07] MEDS: SERTRALINE HCL 50 MG TABLET PO SCH (09:37)
[2019-04-07] MEDS: MORPHINE SULFATE 10 MG/ML INJ IV PRN (13:36)
[2019-04-07] MEDS ORDERED: NORMAL SALINE 1000 ML 1,000 ML IV ONE (15:40)
--- NOTE | 2019-04-07 15:48 | PDOC PROGRESS REPORT ---
Subjective Progress Note for:: 04/07/19 Subjective:: 04/06/2019 Patient was admitted for dehydration, weakness, decreased appetite and nausea Patient has a history of diabetes as well as hypertension. Also has a history of stage IV liver cancer. 04/07/2019 Pressures have been running low today 90/50 looks like her baseline is around 110/90 Pulse is up to about 100 Give patient fluid challenge Reason For Visit: DEHYDRATION,STAGE IV LIVER CANCER,DIABETES, Physical Exam Vital Signs: Temp Pulse Resp BP Pulse Ox 97.4 F 100 18 91/53 L 99 04/07/19 12:40 04/07/19 12:40 04/07/19 12:40 04/07/19 12:40 04/07/19 12:40 Intake & Output 04/06/19 04/07/19 04/08/19 06:59 06:59 06:59 Intake Total 3558 2404 Output Total 200 225 Balance 3358 2179 Weight 96.7 kg 95.8 kg General appearance: PRESENT: no acute distress - Patient is confused this morning, other Respiratory exam: PRESENT: clear to auscultation gricel. ABSENT: rales, rhonchi, wheezes Cardiovascular exam: PRESENT: RRR. ABSENT: diastolic murmur, rubs, systolic murmur Neurological exam: PRESENT: alert, other - Pleasantly confused Psychiatric exam: PRESENT: appropriate affect, normal mood. ABSENT: homicidal ideation, suicidal ideation Results Laboratory Results: 04/05/19 06:29 04/05/19 06:29 04/05/19 05:20 Catheterized Urine Urine Culture - Final NO GROWTH 2 DAYS 04/04/19 12:45 Troponin I < 0.012 Impressions: Chest X-Ray 04/04/19 11:56 IMPRESSION: No acute cardiopulmonary process. Head MRI 04/06/19 00:00 IMPRESSION: Very limited study due to motion artifact. Old left frontal craniotomy with 2 cm area of encephalomalacia in the anterior left frontal lobe. Superior to this area, a 5 mm enhancing left frontal cortical nodule is present. This could represent a tiny metastatic lesion. Tiny cortical infarct is possible. Repeat MRI is recommended when the patient is able to comply with imaging. EVIDENCE OF ACUTE STROKE: No large territory infarct. Findings as above. Assessment and Plan - Diagnosis (1) Hypertension Is this a current diagnosis for this admission?: Yes (2) Diabetes Is this a current diagnosis for this admission?: Yes (3) Dehydration Is this a current diagnosis for this admission?: Yes (4) Liver cancer Qualifiers: Liver malignancy type: hepatocellular carcinoma Qualified Code(s): C22.0 - Liver cell carcinoma Is this a current diagnosis for this admission?: Yes (5) Weakness Is this a current diagnosis for this admission?: Yes - Plan Summary Summary: 04/06/2019 labs today are actually stable, urine and blood cultures showed no growth in 24 hours, x-ray from admission shows no cardiopulmonary disease. Oncology has ordered a MRI of the brain which I agree with,to look for metastases. Continue IV fluids but decrease the rate to 100/h. 10 you sliding scale of insulin, continue IV Rocephin, 04/07/2019 Since MRI of the brain was suboptimal due to motion artifact. Patient will be given 1 mg of Ativan p.o. 30 minutes prior to the study will be repeated today. Patient had some morphine earlier and lasted about 30 minutes and then she was up and confused again. I am going to order Ativan to use as needed every 4 hours for her for agitation or he is trying to get up out of bed. Also for the last 2-3 checks her blood pressure has been running low again, as it was when she was admitted. I am going to recheck labs and then give her a bolus of 1 L normal saline. Oncology is going to talk to the patient's son concerning advance directives. - Time Time Spent with patient: 25-34 minutes
[2019-04-07 16:43] LABS: ANION GAP 7 (5-19); BLOOD UREA NITROGEN 41 mg/dL (7-20); CALCIUM 8.9 mg/dL (8.4-10.2); CARBON DIOXIDE 19 mmol/L (22-30); CHLORIDE 104 mmol/L (98-107); POTASSIUM 5.3 mmol/L (3.6-5.0)
[2019-04-07 16:46] LABS: GLUCOSE 67 mg/dL (75-110)
[2019-04-07] MEDS: CEFTRIAXONE 1 GM/D5W RTU 1 GM/50 ML RTUPB IV SCH (17:47)
[2019-04-07] MEDS: LORAZEPAM 1 MG TABLET PO PRN (20:55)
[2019-04-07] MEDS: SIMVASTATIN 40 MG TABLET PO SCH (22:21)
[2019-04-08] MEDS: DEXTROSE 50%-WATER 25 GM/50 ML DISP.SYRIN IV PRN (05:10)
[2019-04-08] MEDS: HEPARIN SOD (PORCINE) 5,000 UNIT/ML 1 ML VIAL SUBCUT SCH ×3 (05:42→21:51)
[2019-04-08] MEDS: LEVOTHYROXINE SODIUM 0.112 MG TABLET PO SCH (05:42)
[2019-04-08] MEDS: INSULIN LISPRO 100 UNIT/ML 3 ML VIAL SUBCUT SCH ×4 (07:26→22:02)
[2019-04-08] MEDS: METFORMIN HCL 500 MG TABLET PO SCH ×2 (09:54→17:24)
[2019-04-08] MEDS: SERTRALINE HCL 50 MG TABLET PO SCH (09:56)
[2019-04-08] MEDS: ASPIRIN 81 MG TABLET, ENT COATED PO SCH (09:56)
[2019-04-08] MEDS: FAMOTIDINE 20 MG TABLET PO SCH ×2 (09:56→21:51)
--- NOTE | 2019-04-08 10:47 | ADVANCED CARE ---
- Diagnosis (2) Liver cancer, primary, with metastasis from liver to other site Diagnosis Current: Yes Attendance: Pt, son Pancho on phone Resuscitation Status: Do Not Resuscitate Discussion: Dw pt and family, son is POA and agrees to DNR, pt is not able to make decisions 2nd AMS
--- NOTE | 2019-04-08 13:38 | PDOC PROGRESS REPORT ---
Subjective Progress Note for:: 04/08/19 Subjective:: Patient still quite confused overnight, was not able to get the MRI with more sedation, had long discussion with the son, he is going to be meeting Sofie from [facility] today at 5 PM. She probably will need some sort of facility type stay, so I discussed with him that with hospice patient could get placed in the facility hopefully. Reason For Visit: DEHYDRATION,STAGE IV LIVER CANCER,DIABETES Physical Exam Vital Signs: Temp Pulse Resp BP Pulse Ox 98.3 F 83 17 115/63 98 04/07/19 23:59 04/07/19 23:59 04/07/19 23:59 04/07/19 23:59 04/07/19 23:59 Intake & Output 04/07/19 04/08/19 04/09/19 06:59 06:59 06:59 Intake Total 2404 1286 Output Total 225 300 Balance 2179 986 Weight 95.8 kg 95.1 kg General appearance: PRESENT: no acute distress, well-developed, well-nourished Head exam: PRESENT: atraumatic, normocephalic Eye exam: PRESENT: conjunctiva pink, EOMI, PERRLA. ABSENT: scleral icterus Ear exam: PRESENT: normal external ear exam Mouth exam: PRESENT: moist, tongue midline Neck exam: ABSENT: carotid bruit, JVD, lymphadenopathy, thyromegaly Respiratory exam: PRESENT: clear to auscultation gricel. ABSENT: rales, rhonchi, wheezes Cardiovascular exam: PRESENT: RRR. ABSENT: diastolic murmur, rubs, systolic mu rmur Pulses: PRESENT: normal dorsalis pedis pul Vascular exam: PRESENT: normal capillary refill GI/Abdominal exam: PRESENT: normal bowel sounds, soft. ABSENT: distended, guarding, mass, organolmegaly, rebound, tenderness Rectal exam: PRESENT: deferred Extremities exam: PRESENT: full ROM. ABSENT: calf tenderness, clubbing, pedal edema Neurological exam: PRESENT: alert, awake, oriented to person, oriented to place, oriented to time, oriented to situation, CN II-XII grossly intact. ABSENT: motor sensory deficit Psychiatric exam: PRESENT: appropriate affect, normal mood. ABSENT: homicidal ideation, suicidal ideation Skin exam: PRESENT: dry, intact, warm. ABSENT: cyanosis, rash Results Laboratory Results: 04/05/19 06:29 04/07/19 16:07 04/07/19 04/07/19 16:07 16:07 Sodium 129.9 L Potassium 5.3 H Chloride 104 Carbon Dioxide 19 L Anion Gap 7 BUN 41 H Creatinine 1.38 H Est GFR ( Amer) 45 L Glucose 67 L Calcium 8.9 Ammonia 13.3 04/05/19 05:20 Catheterized Urine Urine Culture - Final NO GROWTH 2 DAYS 04/04/19 12:45 Troponin I < 0.012 Impressions: Chest X-Ray 04/04/19 11:56 IMPRESSION: No acute cardiopulmonary process. Head MRI 04/06/19 00:00 IMPRESSION: Very limited study due to motion artifact. Old left frontal craniotomy with 2 cm area of encephalomalacia in the anterior left frontal lobe. Superior to this area, a 5 mm enhancing left frontal cortic al nodule is present. This could represent a tiny metastatic lesion. Tiny cortical infarct is possible. Repeat MRI is recommended when the patient is able to comply with imaging. EVIDENCE OF ACUTE STROKE: No large territory infarct. Findings as above. Assessment & Plan - Diagnosis (1) Liver cancer Qualifiers: Liver malignancy type: hepatocellular carcinoma Qualified Code(s): C22.0 - Liver cell carcinoma Is this a current diagnosis for this admission?: Yes Plan: Not candidate for further treatment, life expectancy less than 6 months, hospice appropriate. - Time Time Spent with patient: 35 or more minutes - Inpatient Certification Based on my medical assessment, after consideration of the patient's comorbidities, presenting symptoms, or acuity I expect that the services needed warrant INPATIENT care.: Yes I certify that my determination is in accordance with my understanding of Medicare's requirements for reasonable and necessary INPATIENT services [42 CFR 412.3e].: Yes Medical Necessity: Risk of Complication if Not Cared For in Hospital
--- NOTE | 2019-04-08 14:32 | PDOC PROGRESS REPORT ---
Subjective Progress Note for:: 04/08/19 Subjective:: 04/06/2019 Patient was admitted for dehydration, weakness, decreased appetite and nausea Patient has a history of diabetes as well as hypertension. Also has a history of stage IV liver cancer. 04/07/2019 Pressures have been running low today 90/50 looks like her baseline is around 110/90 Pulse is up to about 100 Give patient fluid challenge 04/08/2019 Blood pressures come up today to about 110/70, which appears to be her baseline, heart rates averaging around 90 Patient admitted with worsening weakness, fatigue, loss of appetite. Stage IV liver cancer. To meet with Hospice today. Reason For Visit: DEHYDRATION,STAGE IV LIVER CANCER,DIABETES Physical Exam Vital Signs: Temp Pulse Resp BP Pulse Ox 98.3 F 83 17 115/63 98 04/07/19 23:59 04/07/19 23:59 04/07/19 23:59 04/07/19 23:59 04/07/19 23:59 Intake & Output 04/07/19 04/08/19 04/09/19 06:59 06:59 06:59 Intake Total 2404 1286 Output Total 225 300 Balance 2179 986 Weight 95.8 kg 95.1 kg General appearance: PRESENT: no acute distress, other - Patient is having periods of confusion Respiratory exam: PRESENT: clear to auscultation gricel. ABSENT: rales, rhonchi, wheezes Cardiovascular exam: PRESENT: RRR. ABSENT: diastolic murmur, rubs, systolic murmur Neurological exam: PRESENT: alert, awake, oriented to person, oriented to place, oriented to time, oriented to situation, CN II-XII grossly intact. ABSENT: motor sensory deficit Psychiatric exam: PRESENT: appropriate affect, normal mood. ABSENT: homicidal ideation, suicidal ideation Results Laboratory Results: 04/05/19 06:29 04/07/19 16:07 04/07/19 04/07/19 16:07 16:07 Sodium 129.9 L Potassium 5.3 H Chloride 104 Carbon Dioxide 19 L Anion Gap 7 BUN 41 H Creatinine 1.38 H Est GFR ( Amer) 45 L Glucose 67 L Calcium 8.9 Ammonia 13.3 04/04/19 12:45 Troponin I < 0.012 Impressions: Chest X-Ray 04/04/19 11:56 IMPRESSION: No acute cardiopulmonary process. Head MRI 04/06/19 00:00 IMPRESSION: Very limited study due to motion artifact. Old left frontal craniotomy with 2 cm area of encephalomalacia in the anterior left frontal lobe. Superior to this area, a 5 mm enhancing left frontal co rtical nodule is present. This could represent a tiny metastatic lesion. Tiny cortical infarct is possible. Repeat MRI is recommended when the patient is able to comply with imaging. EVIDENCE OF ACUTE STROKE: No large territory infarct. Findings as above. Assessment and Plan - Diagnosis (1) Hypertension Is this a current diagnosis for this admission?: Yes (2) Diabetes Is this a current diagnosis for this admission?: Yes (3) Dehydration Is this a current diagnosis for this admission?: Yes (4) Liver cancer Qualifiers: Liver malignancy type: hepatocellular carcinoma Qualified Code(s): C22.0 - Liver cell carcinoma Is this a current diagnosis for this admission?: Yes (5) Weakness Is this a current diagnosis for this admission?: Yes - Plan Summary Summary: 04/06/2019 labs today are actually stable, urine and blood cultures showed no growth in 24 hours, x-ray from admission shows no cardiopulmonary disease. Oncology has ordered a MRI of the brain which I agree with,to look for metastases. Continue IV fluids but decrease the rate to 100/h. 10 you sliding scale of insulin, continue IV Rocephin, 04/07/2019 Since MRI of the brain was suboptimal due to motion artifact. Patient will be given 1 mg of Ativan p.o. 30 minutes prior to the study will be repeated today. Patient had some morphine earlier and lasted about 30 minutes and then she was up and confused again. I am going to order Ativan to use as needed every 4 hours for her for agitation or he is trying to get up out of bed. Also for the last 2-3 checks her blood pressure has been running low again, as it was when she was admitted. I am going to recheck labs and then give her a bolus of 1 L normal saline. Oncology is going to talk to the patient's son concerning advance directives. 04/08/2019 Patient responded to the fluid bolus yesterday. Unfortunately she is still confused even with Ativan she was unable to have the MRI scan done of her brain. Family will talk with hospice this afternoon about placement probably within the next 48 hours Continue fluids at 150 an hour D5W I Have discussed the case today with the oncologist. - Time Time Spent with patient: 35 or more minutes
[2019-04-08] MEDS: MORPHINE SULFATE 10 MG/ML INJ IV PRN ×2 (16:02→23:56)
[2019-04-08] MEDS: CEFTRIAXONE 1 GM/D5W RTU 1 GM/50 ML RTUPB IV SCH (17:27)
[2019-04-08] MEDS: SIMVASTATIN 40 MG TABLET PO SCH (21:51)
[2019-04-09] MEDS: LEVOTHYROXINE SODIUM 0.112 MG TABLET PO SCH ×2 (06:15→06:22)
[2019-04-09] MEDS: HEPARIN SOD (PORCINE) 5,000 UNIT/ML 1 ML VIAL SUBCUT SCH ×4 (06:16→22:24)
[2019-04-09] MEDS: MORPHINE SULFATE 10 MG/ML INJ IV PRN ×2 (07:34→16:04)
[2019-04-09] MEDS: INSULIN LISPRO 100 UNIT/ML 3 ML VIAL SUBCUT SCH ×4 (08:06→22:21)
[2019-04-09] MEDS: METFORMIN HCL 500 MG TABLET PO SCH ×2 (09:27→17:23)
[2019-04-09] MEDS: ASPIRIN 81 MG TABLET, ENT COATED PO SCH (09:28)
[2019-04-09] MEDS: FAMOTIDINE 20 MG TABLET PO SCH ×2 (09:28→22:25)
[2019-04-09] MEDS: SERTRALINE HCL 50 MG TABLET PO SCH (09:28)
--- NOTE | 2019-04-09 13:09 | PDOC PROGRESS REPORT ---
Subjective Progress Note for:: 04/09/19 Subjective:: 04/06/2019 Patient was admitted for dehydration, weakness, decreased appetite and nausea Patient has a history of diabetes as well as hypertension. Also has a history of stage IV liver cancer. 04/07/2019 Pressures have been running low today 90/50 looks like her baseline is around 110/90 Pulse is up to about 100 Give patient fluid challenge 04/08/2019 Blood pressures come up today to about 110/70, which appears to be her baseline, heart rates averaging around 90 Patient admitted with worsening weakness, fatigue, loss of appetite. Stage IV liver cancer. To meet with Hospice today. 04/09/2019 Patient is still confused today. Patient's Haver seems to be more elated to possible cerebral involvement, probable mets. Repeat patient's labs today, continue to treat the things that we can treat. Agree with hospice consult. Reason For Visit: DEHYDRATION,STAGE IV LIVER CANCER,DIABETES Physical Exam Vital Signs: Temp Pulse Resp BP Pulse Ox 97.4 F 93 20 122/74 94 04/09/19 11:48 04/09/19 11:48 04/09/19 07:21 04/09/19 11:48 04/09/19 11:48 Intake & Output 04/08/19 04/09/19 04/10/19 06:59 06:59 06:59 Intake Total 1286 50 Output Total 300 1400 Balance 986 -1350 Weight 95.1 kg 96.7 kg Results Laboratory Results: 04/05/19 06:29 04/07/19 16:07 04/04/19 12:45 Troponin I < 0.012 Impressions: Chest X-Ray 04/04/19 11:56 IMPRESSION: No acute cardiopulmonary process. Head MRI 04/06/19 00:00 IMPRESSION: Very limited study due to motion artifact. Old left frontal craniotomy with 2 cm area of encephalomalacia in the anterior left frontal lobe. Superior to this area, a 5 mm enhancing left frontal cortical nodule is present. This could represent a tiny metastatic lesion. Tiny cortical infarct is possible. Repeat MRI is recommended when the patient is able to comply with imaging. EVIDENCE OF ACUTE STROKE: No large territory infarct. Findings as above. Assessment and Plan - Diagnosis (1) Hypertension Is this a current diagnosis for this admission?: Yes (2) Diabetes Is this a current diagnosis for this admission?: Yes (3) Dehydration Is this a current diagnosis for this admission?: Yes (4) Liver cancer Qualifiers: Liver malignancy type: hepatocellular carcinoma Qualified Code(s): C22.0 - Liver cell carcinoma Is this a current diagnosis for this admission?: Yes (5) Weakness Is this a current diagnosis for this admission?: Yes - Plan Summary Summary: 04/06/2019 labs today are actually stable, urine and blood cultures showed no growth in 24 hours, x-ray from admission shows no cardiopulmonary disease. Oncology has ordered a MRI of the brain which I agree with,to look for metastases. Continue IV fluids but decrease the rate to 100/h. 10 you sliding scale of insulin, continue IV Rocephin, 04/07/2019 Since MRI of the brain was suboptimal due to motion artifact. Patient will be given 1 mg of Ativan p.o. 30 minutes prior to the study will be repeated today. Patient had some morphine earlier and lasted about 30 minutes and then she was up and confused again. I am going to order Ativan to use as needed every 4 hours for her for agitation or he is trying to get up out of bed. Also for the last 2-3 checks her blood pressure has been running low again, as it was when she was admitted. I am going to recheck labs and then give her a bolus of 1 L normal saline. Oncology is going to talk to the patient's son concerning advance directives. 04/08/2019 Patient responded to the fluid bolus yesterday. Unfortunately she is still conf used even with Ativan she was unable to have the MRI scan done of her brain. Family will talk with hospice this afternoon about placement probably within the next 48 hours Continue fluids at 150 an hour D5W I Have discussed the case today with the oncologist. 04/09/2019 Hospice pending. We will recheck labs today and adjust accordingly. I have briefly spoken to the son and told him that this appears to be a situation that is not going to correct itself. Of course one cannot predict the timing of events. Patient however does not seem to be improving with hydration. - Time Time Spent with patient: 25-34 minutes
[2019-04-09] MEDS: DEXTROSE 5%-WATER 1000 ML 1,000 ML IV PRN ×2 (13:27→22:41)
[2019-04-09 14:25] LABS: ABSOLUTE EOSINOPHILS # (AUTO) 0.1 10^3/uL (0.0-0.6); ABSOLUTE LYMPHOCYTES (AUTO) 0.6 10^3/uL (0.5-4.7); ABSOLUTE MONOCYTES (AUTO) 0.5 10^3/uL (0.1-1.4); ABSOLUTE NEUT (AUTO) 4.4 10^3/uL (1.7-8.2); BASOPHILS % (AUTO) 0.7 % (0-2); EOSINOPHILS % (AUTO) 2.5 % (0-6); HEMATOCRIT 30.4 % (36.0-47.0); HEMOGLOBIN 10.1 g/dL (12.0-15.5); LYMPHOCYTES % (AUTO) 10.3 % (13-45); MEAN CORPUSCULAR HEMOGLOBIN 27.4 pg (27.0-33.4); MEAN CORPUSCULAR HGB CONC 33.3 g/dL (32.0-36.0); MEAN CORPUSCULAR VOLUME 82 fl (80-97); MONOCYTES % (AUTO) 8.5 % (3-13); PLATELET COUNT 340 10^3/uL (150-450); RED CELL DISTRIBUTION WIDTH 21.3 % (11.5-14.0); TOTAL CELLS COUNTED % (AUTO) 100 %; WHITE BLOOD COUNT 5.6 10^3/uL (4.0-10.5)
[2019-04-09 14:55] LABS: ANION GAP 6 (5-19); BLOOD UREA NITROGEN 29 mg/dL (7-20); CALCIUM 8.9 mg/dL (8.4-10.2); CARBON DIOXIDE 19 mmol/L (22-30); CHLORIDE 103 mmol/L (98-107); GLUCOSE 86 mg/dL (75-110); POTASSIUM 4.6 mmol/L (3.6-5.0)
[2019-04-09] MEDS: CEFTRIAXONE 1 GM/D5W RTU 1 GM/50 ML RTUPB IV SCH (18:02)
[2019-04-09] MEDS: SIMVASTATIN 40 MG TABLET PO SCH (22:23)
[2019-04-10] MEDS: LORAZEPAM 1 MG TABLET PO PRN ×2 (01:03→12:25)
[2019-04-10] MEDS: HEPARIN SOD (PORCINE) 5,000 UNIT/ML 1 ML VIAL SUBCUT SCH ×2 (05:51→16:28)
[2019-04-10] MEDS: LEVOTHYROXINE SODIUM 0.112 MG TABLET PO SCH (05:52)
[2019-04-10] MEDS: INSULIN LISPRO 100 UNIT/ML 3 ML VIAL SUBCUT SCH ×2 (08:43→12:35)
--- NOTE | 2019-04-10 09:02 | PDOC PROGRESS REPORT ---
Subjective Progress Note for:: 04/10/19 Subjective:: No acute events overnight, son had a long conversation with Sofie yesterday, they feel they can get patient home with hospice and [id number] caregivers, her sister is coming to town the next 24 to 48 hours, I have asked Sofie to start bringing in the equipment and hopeful discharge in the next 48 to 72 hours. Reason For Visit: DEHYDRATION,STAGE IV LIVER CANCER,DIABETES Physical Exam Vital Signs: Temp Pulse Resp BP Pulse Ox 97.4 F 93 20 122/74 94 04/09/19 11:48 04/09/19 11:48 04/09/19 07:21 04/09/19 11:48 04/09/19 11:48 Intake & Output 04/09/19 04/10/19 04/11/19 06:59 06:59 06:59 Intake Total 50 1050 Output Total 1400 1175 Balance -1350 -125 Weight 96.7 kg 98.5 kg General appearance: PRESENT: no acute distress, well-developed, well-nourished Head exam: PRESENT: atraumatic, normocephalic Eye exam: PRESENT: conjunctiva pink, EOMI, PERRLA. ABSENT: scleral icterus Ear exam: PRESENT: normal external ear exam Mouth exam: PRESENT: moist, tongue midline Neck exam: ABSENT: carotid bruit, JVD, lymphadenopathy, thyromegaly Respiratory exam: PRESENT: clear to auscultation gricel. ABSENT: rales, rhonchi, wheezes Cardiovascular exam: PRESENT: RRR. ABSENT: diastolic murmur, rubs, systolic murmur Pulses: PRESENT: normal dorsalis pedis pul Vascular exam: PRESENT: normal capillary refill GI/Abdominal exam: PRESENT: normal bowel sounds, soft. ABSENT: distended, guarding, mass, organolmegaly, rebound, tenderness Rectal exam: PRESENT: deferred Extremities exam: PRESENT: full ROM. ABSENT: calf tenderness, clubbing, pedal edema Neurological exam: PRESENT: alert, awake, oriented to person, oriented to place, oriented to time, oriented to situation, CN II-XII grossly intact. ABSENT: motor sensory deficit Psychiatric exam: PRESENT: appropriate affect, normal mood. ABSENT: homicidal ideation, suicidal ideation Skin exam: PRESENT: dry, intact, warm. ABSENT: cyanosis, rash Results Laboratory Results: 04/09/19 13:45 04/09/19 13:45 04/09/19 04/09/19 04/09/19 13:45 13:45 13:45 WBC 5.6 RBC 3.70 L Hgb 10.1 L Hct 30.4 L MCV 82 MCH 27.4 MCHC 33.3 RDW 21.3 H Plt Count 340 Seg Neutrophils % 78.0 Sodium 128.3 L Potassium 4.6 Chloride 103 Carbon Dioxide 19 L Anion Gap 6 BUN 29 H Creatinine 1.00 Est GFR ( Amer) > 60 Glucose 86 Calcium 8.9 TSH 3.56 04/04/19 15:32 Blood Blood Culture - Final NO GROWTH IN 5 DAYS 04/04/19 12:45 Blood Blood Culture - Final NO GROWTH IN 5 DAYS 04/04/19 12:45 Troponin I < 0.012 Impressions: Chest X-Ray 04/04/19 11:56 IMPRESSION: No acute cardiopulmonary process. Head MRI 04/06/19 00:00 IMPRESSION: Very limited study due to motion artifact. Old left frontal craniotomy with 2 cm area of encephalomalacia in the anterior left frontal lobe. Superior to this area, a 5 mm enhancing left frontal cortical nodule is present. This could represent a tiny metastatic lesion. Tiny cortical infarct is possible. Repeat MRI is recommended when the patient is able to comply with imaging. EVIDENCE OF ACUTE STROKE: No large territory infarct. Findings as above. Assessment & Plan - Diagnosis (1) Liver cancer Qualifiers: Liver malignancy type: hepatocellular carcinoma Qualified Code(s): C22.0 - Liver cell carcinoma Is this a current diagnosis for this admission?: Yes Plan: No further treatment plan, home hospice in the works - Time Time Spent with patient: 35 or more minutes
--- NOTE | 2019-04-10 09:33 | PDOC PROGRESS REPORT ---
Subjective Progress Note for:: 04/10/19 Subjective:: 04/06/2019 Patient was admitted for dehydration, weakness, decreased appetite and nausea Patient has a history of diabetes as well as hypertension. Also has a history of stage IV liver cancer. 04/07/2019 Pressures have been running low today 90/50 looks like her baseline is around 110/90 Pulse is up to about 100 Give patient fluid challenge 04/08/2019 Blood pressures come up today to about 110/70, which appears to be her baseline, heart rates averaging around 90 Patient admitted with worsening weakness, fatigue, loss of appetite. Stage IV liver cancer. To meet with Hospice today. 04/09/2019 Patient is still confused today. Patient's Haver seems to be more elated to possible cerebral involvement, probable mets. Repeat patient's labs today, continue to treat the things that we can treat. Agree with hospice consult. 04/10/2019 Patient still confused awaiting home health and hospice arrangements. 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 Patient is on 5W at 100/h we will changes to normal saline Reason For Visit: DEHYDRATION,STAGE IV LIVER CANCER,DIABETES Physical Exam Vital Signs: Temp Pulse Resp BP Pulse Ox 97.5 F 108 H 16 98/72 L 100 04/10/19 07:15 04/10/19 07:15 04/10/19 07:15 04/10/19 07:15 04/10/19 07:15 Intake & Output 04/09/19 04/10/19 04/11/19 06:59 06:59 06:59 Intake Total 50 1050 Output Total 1400 1175 Balance -1350 -125 Weight 96.7 kg 98.5 kg Results Laboratory Results: 04/09/19 13:45 04/09/19 13:45 04/09/19 04/09/19 04/09/19 13:45 13:45 13:45 WBC 5.6 RBC 3.70 L Hgb 10.1 L Hct 30.4 L MCV 82 MCH 27.4 MCHC 33.3 RDW 21.3 H Plt Count 340 Seg Neutrophils % 78.0 Sodium 128.3 L Potassium 4.6 Chloride 103 Carbon Dioxide 19 L Anion Gap 6 BUN 29 H Creatinine 1.00 Est GFR ( Amer) > 60 Glucose 86 Calcium 8.9 TSH 3.56 04/04/19 15:32 Blood Blood Culture - Final NO GROWTH IN 5 DAYS 04/04/19 12:45 Blood Blood Culture - Final NO GROWTH IN 5 DAYS 04/04/19 12:45 Troponin I < 0.012 Impressions: Chest X-Ray 04/04/19 11:56 IMPRESSION: No acute cardiopulmonary process. Head MRI 04/06/19 00:00 IMPRESSION: Very limited study due to motion artifact. Old left frontal craniotomy with 2 cm area of encephalomalacia in the anterior left frontal lobe. Superior to this area, a 5 mm enhancing left frontal cortical nodule is present. This could represent a tiny metastatic lesion. Tiny cortical infarct is possible. Repeat MRI is recommended when the patient is able to comply with imaging. EVIDENCE OF ACUTE STROKE: No large territory infarct. Findings as above. Assessment and Plan - Diagnosis (1) Hypertension Is this a current diagnosis for this admission?: Yes (2) Diabetes Is this a current diagnosis for this admission?: Yes (3) Dehydration Is this a current diagnosis for this admission?: Yes (4) Liver cancer Qualifiers: Liver malignancy type: hepatocellular carcinoma Qualified Code(s): C22.0 - Liver cell carcinoma Is this a current diagnosis for this admission?: Yes (5) Weakness Is this a current diagnosis for this admission?: Yes - Plan Summary Summary: 04/06/2019 labs today are actually stable, urine and blood cultures showed no growth in 24 hours, x-ray from admission shows no cardiopulmonary disease. Oncology has ordered a MRI of the brain which I agree with,to look for metastases. Continue IV fluids but decrease the rate to 100/h. 10 you sliding scale of insulin, continue IV Rocephin, 04/07/2019 Since MRI of the brain was suboptimal due to motion artifact. Patient will be given 1 mg of Ativan p.o. 30 minutes prior to the study will be repeated today. Patient had some morphine earlier and lasted about 30 minutes and then she was up and confused again. I am going to order Ativan to use as needed every 4 hours for her for agitation or he is trying to get up out of bed. Also for the last 2-3 checks her blood pressure has been running low again, as it was when she was admitted. I am going to recheck labs and then give her a bolus of 1 L normal saline. Oncology is going to talk to the patient's son concerning advance directives. 04/08/2019 Patient responded to the fluid bolus yesterday. Unfortunately she is still confused even with Ativan she was unable to have the MRI scan done of her brain. Family will talk with hospice this afternoon about placement probably within the next 48 hours Continue fluids at 150 an hour D5W I Have discussed the case today with the oncologist. 04/09/2019 Hospice pending. We will recheck labs today and adjust accordingly. I have briefly spoken to the son and told him that this appears to be a situation that is not going to correct itself. Of course one cannot predict the timing of events. Patient however does not seem to be improving with hydration. 04/10/2019 Discharge planning working on home hospice. Sodium down slightly will change to normal saline. 10 you Rocephin as long as patient is in the hospital. Will not need Rocephin at discharge. Patient taking Zocor, Synthroid, Zoloft. May need a low dose of Ativan p.o. on a as needed basis - Time Time Spent with patient: 25-34 minutes
[2019-04-10] MEDS ORDERED: POTASSI CL 20 MEQ/NS 1L 1,000 ML IV PRN (09:34)
[2019-04-10] MEDS: ASPIRIN 81 MG TABLET, ENT COATED PO SCH ×2 (12:24→12:36)
[2019-04-10] MEDS: SERTRALINE HCL 50 MG TABLET PO SCH ×2 (12:24→12:35)
[2019-04-10] MEDS: FAMOTIDINE 20 MG TABLET PO SCH ×2 (12:24→12:37)
[2019-04-10] MEDS: METFORMIN HCL 500 MG TABLET PO SCH (12:35)
[2019-04-10] MEDS ORDERED: ACETAMINOPHEN 650 MG SUPP.RECT PR PRN (21:51)
[2019-04-11] MEDS: INSULIN LISPRO 100 UNIT/ML 3 ML VIAL SUBCUT SCH ×4 (00:48→16:43)
[2019-04-11] MEDS: FAMOTIDINE 20 MG TABLET PO SCH ×4 (00:49→21:29)
[2019-04-11] MEDS: SIMVASTATIN 40 MG TABLET PO SCH ×3 (00:49→21:29)
[2019-04-11] MEDS: HEPARIN SOD (PORCINE) 5,000 UNIT/ML 1 ML VIAL SUBCUT SCH ×4 (00:50→21:25)
[2019-04-11] MEDS: ACETAMINOPHEN 325 MG TABLET PO PRN ×2 (03:25→09:45)
[2019-04-11] MEDS: LORAZEPAM 1 MG TABLET PO PRN ×2 (03:25→09:45)
--- NOTE | 2019-04-11 08:29 | PDOC PROGRESS REPORT ---
Subjective Progress Note for:: 04/11/19 Subjective:: No acute events overnight but patient did lose her IV yesterday, prior to losing the IV she did have a blood sugar of 69, therefore we felt that giving the D5W was necessary, however this morning her blood sugar was as high as 300 because she did eat some chocolate through the night. Discussed with nursing, if patient is eating chocolate and is able to keep her blood sugar up we may not need the PICC line. Reason For Visit: DEHYDRATION,STAGE IV LIVER CANCER,DIABETES Physical Exam Vital Signs: Temp Pulse Resp BP Pulse Ox 97.5 F 108 H 16 98/72 L 100 04/10/19 07:15 04/10/19 07:15 04/10/19 07:15 04/10/19 07:15 04/10/19 07:15 Intake & Output 04/10/19 04/11/19 04/12/19 06:59 06:59 06:59 Intake Total 1050 20 Output Total 1175 850 Balance -125 -830 Weight 98.5 kg 97.7 kg General appearance: PRESENT: no acute distress, well-developed, well-nourished Head exam: PRESENT: atraumatic, normocephalic Eye exam: PRESENT: conjunctiva pink, EOMI, PERRLA. ABSENT: scleral icterus Ear exam: PRESENT: normal external ear exam Mouth exam: PRESENT: moist, tongue midline Neck exam: ABSENT: carotid bruit, JVD, lymphadenopathy, thyromegaly Respiratory exam: PRESENT: clear to auscultation gricel. ABSENT: rales, rhonchi, wheezes Cardiovascular exam: PRESENT: RRR. ABSENT: diastolic murmur, rubs, systolic murmur Pulses: PRESENT: normal dorsalis pedis pul Vascular exam: PRESENT: normal capillary refill GI/Abdominal exam: PRESENT: normal bowel sounds, soft. ABSENT: distended, guarding, mass, organolmegaly, rebound, tenderness Rectal exam: PRESENT: deferred Extremities exam: PRESENT: full ROM. ABSENT: calf tenderness, clubbing, pedal edema Neurological exam: PRESENT: alert, awake, oriented to person, oriented to place, oriented to time, oriented to situation, CN II-XII grossly intact. ABSENT: motor sensory deficit Psychiatric exam: PRESENT: appropriate affect, normal mood. ABSENT: homicidal ideation, suicidal ideation Skin exam: PRESENT: dry, intact, warm. ABSENT: cyanosis, rash Results Laboratory Results: 04/09/19 13:45 04/09/19 13:45 04/04/19 12:45 Troponin I < 0.012 Impressions: Chest X-Ray 04/04/19 11:56 IMPRESSION: No acute cardiopulmonary process. Head MRI 04/06/19 00:00 IMPRESSION: Very limited study due to motion artifact. Old left frontal craniotomy with 2 cm area of encephalomalacia in the anterior left frontal lobe. Superior to this area, a 5 mm enhancing left frontal cortical nodule is present. This could represent a tiny metastatic lesion. Tiny cortical infarct is possible. Repeat MRI is recommended when the patient is able to comply with imaging. EVIDENCE OF ACUTE STROKE: No large territory infarct. Findings as above. Assessment & Plan - Diagnosis (1) Liver cancer Qualifiers: Liver malignancy type: hepatocellular carcinoma Qualified Code(s): C22.0 - Liver cell carcinoma Is this a current diagnosis for this admission?: Yes Plan: Hopeful DC soon with home hospice once all aids and equipment has been set up. - Time Time Spent with patient: 35 or more minutes
[2019-04-11] MEDS: METFORMIN HCL 500 MG TABLET PO SCH ×3 (08:56→17:13)
[2019-04-11] MEDS: CEFTRIAXONE 1 GM/D5W RTU 1 GM/50 ML RTUPB IV SCH (08:56)
[2019-04-11] MEDS: LEVOTHYROXINE SODIUM 0.112 MG TABLET PO SCH (08:57)
[2019-04-11] MEDS: ASPIRIN 81 MG TABLET, ENT COATED PO SCH (09:31)
[2019-04-11] MEDS: SERTRALINE HCL 50 MG TABLET PO SCH (09:32)
[2019-04-11] MEDS: OXYCODONE HCL IR 5 MG TABLET PO PRN (14:30)
--- NOTE | 2019-04-11 19:53 | PDOC PROGRESS REPORT ---
Subjective Progress Note for:: 04/11/19 Subjective:: No acute event overnight. No recurrence of hypoglycemia. Her sugars have been running in the high 100s. She has been transitioned to hospice. Anticipate discharge to home under hospice at the next 24 hours. Reason For Visit: DEHYDRATION,STAGE IV LIVER CANCER,DIABETES Physical Exam Vital Signs: Temp Pulse Resp BP Pulse Ox 98.1 F 95 19 105/53 L 94 04/11/19 16:00 04/11/19 16:00 04/11/19 16:00 04/11/19 16:00 04/11/19 16:00 Intake & Output 04/10/19 04/11/19 04/12/19 06:59 06:59 06:59 Intake Total 1050 20 437 Output Total 1175 850 500 Balance -125 -830 -63 Weight 217 lb 2.485 oz 215 lb 6.266 oz General appearance: PRESENT: no acute distress, well-developed, well-nourished Head exam: PRESENT: atraumatic, normocephalic Eye exam: PRESENT: conjunctiva pink, EOMI, PERRLA. ABSENT: scleral icterus Ear exam: PRESENT: normal external ear exam Mouth exam: PRESENT: moist, tongue midline Neck exam: ABSENT: carotid bruit, JVD, lymphadenopathy, thyromegaly Respiratory exam: PRESENT: clear to auscultation gricel. ABSENT: rales, rhonchi, wheezes Cardiovascular exam: PRESENT: RRR. ABSENT: diastolic murmur, rubs, systolic murmur Pulses: PRESENT: normal dorsalis pedis pul GI/Abdominal exam: PRESENT: normal bowel sounds, soft. ABSENT: distended, guarding, mass, organolmegaly, rebound, tenderness Rectal exam: PRESENT: deferred Neurological exam: PRESENT: alert, awake, CN II-XII grossly intact. ABSENT: motor sensory deficit Results Laboratory Results: 04/09/19 13:45 04/09/19 13:45 04/04/19 12:45 Troponin I < 0.012 Impressions: Chest X-Ray 04/04/19 11:56 IMPRESSION: No acute cardiopulmonary process. Head MRI 04/06/19 00:00 IMPRESSION: Very limited study due to motion artifact. Old left frontal craniotomy with 2 cm area of encephalomalacia in the anterior left frontal lobe. Superior to this area, a 5 mm enhancing left frontal cortical nodule is present. This could represent a tiny metastatic lesion. Tiny cortical infarct is possible. Repeat MRI is recommended when the patient is able to comply with imaging. EVIDENCE OF ACUTE STROKE: No large territory infarct. Findings as above. Assessment and Plan - Diagnosis (1) Liver cancer Qualifiers: Liver malignancy type: hepatocellular carcinoma Qualified Code(s): C22.0 - Liver cell carcinoma Is this a current diagnosis for this admission?: Yes Plan: She has been transitioned to hospice. Anticipate discharge to home under hospice at the next 24 hours. (2) Hypoglycemia Is this a current diagnosis for this admission?: Yes (3) Diabetes Is this a current diagnosis for this admission?: Yes Plan: Disontinue sliding scale and metformin due to episodes of hypoglycemia. Her A1c suggests she does not need to be on diabetic medications. (4) Hypertension Is this a current diagnosis for this admission?: Yes
[2019-04-12] MEDS: LEVOTHYROXINE SODIUM 0.112 MG TABLET PO SCH (05:25)
[2019-04-12] MEDS: HEPARIN SOD (PORCINE) 5,000 UNIT/ML 1 ML VIAL SUBCUT SCH ×3 (05:28→22:29)
--- NOTE | 2019-04-12 07:57 | PDOC PROGRESS REPORT ---
Subjective Progress Note for:: 04/12/19 Subjective:: Still working on getting her home, hospice is working diligently with son to make this happen, yesterday we canceled the PICC line because her sugars were appropriate because she was taking small sips of boost, some applesauce as well as chocolate Reason For Visit: DEHYDRATION,STAGE IV LIVER CANCER,DIABETES Physical Exam Vital Signs: Temp Pulse Resp BP Pulse Ox 97.3 F 99 19 84/47 L 88 L 04/12/19 00:47 04/12/19 00:47 04/12/19 00:47 04/12/19 00:47 04/12/19 00:47 Intake & Output 04/11/19 04/12/19 04/13/19 06:59 06:59 06:59 Intake Total 20 437 Output Total 850 700 Balance -830 -263 Weight 97.7 kg 100.6 kg General appearance: PRESENT: no acute distress, well-developed, well-nourished Head exam: PRESENT: atraumatic, normocephalic Eye exam: PRESENT: conjunctiva pink, EOMI, PERRLA. ABSENT: scleral icterus Ear exam: PRESENT: normal external ear exam Mouth exam: PRESENT: moist, tongue midline Neck exam: ABSENT: carotid bruit, JVD, lymphadenopathy, thyromegaly Respiratory exam: PRESENT: clear to auscultation gricel. ABSENT: rales, rhonchi, wheezes Cardiovascular exam: PRESENT: RRR. ABSENT: diastolic murmur, rubs, systolic murmur Pulses: PRESENT: normal dorsalis pedis pul Vascular exam: PRESENT: normal capillary refill GI/Abdominal exam: PRESENT: normal bowel sounds, soft. ABSENT: distended, guarding, mass, organolmegaly, rebound, tenderness Rectal exam: PRESENT: deferred Extremities exam: PRESENT: full ROM. ABSENT: calf tenderness, clubbing, pedal edema Neurological exam: PRESENT: alert, awake, oriented to person, oriented to place, oriented to time, oriented to situation, CN II-XII grossly intact. ABSENT: motor sensory deficit Psychiatric exam: PRESENT: appropriate affect, normal mood. ABSENT: homicidal ideation, suicidal ideation Skin exam: PRESENT: dry, intact, warm. ABSENT: cyanosis, rash Results Laboratory Results: 04/09/19 13:45 04/09/19 13:45 04/04/19 12:45 Troponin I < 0.012 Impressions: Chest X-Ray 04/04/19 11:56 IMPRESSION: No acute cardiopulmonary process. Head MRI 04/06/19 00:00 IMPRESSION: Very limited study due to motion artifact. Old left frontal craniotomy with 2 cm area of encephalomalacia in the anterior left frontal lobe. Superior to this area, a 5 mm enhancing left frontal cortical nodule is present. This could represent a tiny metastatic lesion. Tiny cortical infarct is possible. Repeat MRI is recommended when the patient is able to comply with imaging. EVIDENCE OF ACUTE STROKE: No large territory infarct. Findings as above. Assessment & Plan - Diagnosis (1) Liver cancer Qualifiers: Liver malignancy type: hepatocellular carcinoma Qualified Code(s): C22.0 - Liver cell carcinoma Is this a current diagnosis for this admission?: Yes Plan: Home hospice being worked on and planned - Time Time Spent with patient: 15-24 minutes
[2019-04-12] MEDS: SERTRALINE HCL 50 MG TABLET PO SCH (09:20)
[2019-04-12] MEDS: ASPIRIN 81 MG TABLET, ENT COATED PO SCH (09:20)
[2019-04-12] MEDS: OXYCODONE HCL IR 5 MG TABLET PO PRN (09:20)
[2019-04-12] MEDS: FAMOTIDINE 20 MG TABLET PO SCH ×2 (09:23→22:29)
[2019-04-12] MEDS: ACETAMINOPHEN 325 MG TABLET PO PRN (12:53)
[2019-04-12] MEDS ORDERED: MEGESTROL ACETATE 20 MG TABLET PO ONE (13:00)
[2019-04-12] MEDS: SIMVASTATIN 40 MG TABLET PO SCH (22:28)
[2019-04-13] MEDS: HEPARIN SOD (PORCINE) 5,000 UNIT/ML 1 ML VIAL SUBCUT SCH ×2 (05:47→13:10)
[2019-04-13] MEDS: LEVOTHYROXINE SODIUM 0.112 MG TABLET PO SCH (05:47)
[2019-04-13] MEDS: FAMOTIDINE 20 MG TABLET PO SCH (10:48)
[2019-04-13 10:53] VITALS: BP 111/82
[2019-04-13] MEDS: ASPIRIN 81 MG TABLET, ENT COATED PO SCH (11:38)
[2019-04-13] MEDS: SERTRALINE HCL 50 MG TABLET PO SCH (11:38)
--- NOTE | 2019-04-13 16:00 | PDOC PROGRESS REPORT ---
Subjective Progress Note for:: 04/13/19 Subjective:: No acute event overnight. Denies acute complaints. Awaiting home hospice placement. Reason For Visit: DEHYDRATION,STAGE IV LIVER CANCER,DIABETES Physical Exam Vital Signs: Temp Pulse Resp BP Pulse Ox 97.8 F 88 22 H 96/60 L 99 04/12/19 12:00 04/12/19 12:00 04/12/19 12:00 04/12/19 12:00 04/12/19 12:00 Intake & Output 04/11/19 04/12/19 04/13/19 06:59 06:59 06:59 Intake Total 20 437 Output Total 850 700 Balance -830 -263 Weight 215 lb 6.266 oz 221 lb 12.56 oz General appearance: PRESENT: no acute distress, well-developed, well-nourished Head exam: PRESENT: atraumatic, normocephalic Eye exam: PRESENT: conjunctiva pink, EOMI, PERRLA. ABSENT: scleral icterus Ear exam: PRESENT: normal external ear exam Mouth exam: PRESENT: moist, tongue midline Neck exam: ABSENT: carotid bruit, JVD, lymphadenopathy, thyromegaly Respiratory exam: PRESENT: clear to auscultation gricel. ABSENT: rales, rhonchi, wheezes Cardiovascular exam: PRESENT: RRR. ABSENT: diastolic murmur, rubs, systolic murmur Pulses: PRESENT: normal dorsalis pedis pul GI/Abdominal exam: ABSENT: distended, tenderness Rectal exam: PRESENT: deferred Neurological exam: PRESENT: awake, CN II-XII grossly intact. ABSENT: motor sensory deficit Results Laboratory Results: 04/09/19 13:45 04/09/19 13:45 04/04/19 12:45 Troponin I < 0.012 Impressions: Chest X-Ray 04/04/19 11:56 IMPRESSION: No acute cardiopulmonary process. Head MRI 04/06/19 00:00 IMPRESSION: Very limited study due to motion artifact. Old left frontal craniotomy with 2 cm area of encephalomalacia in the anterior left frontal lobe. Superior to this area, a 5 mm enhancing left frontal cortica l nodule is present. This could represent a tiny metastatic lesion. Tiny cortical infarct is possible. Repeat MRI is recommended when the patient is able to comply with imaging. EVIDENCE OF ACUTE STROKE: No large territory infarct. Findings as above. Assessment and Plan - Diagnosis (1) Liver cancer Qualifiers: Liver malignancy type: hepatocellular carcinoma Qualified Code(s): C22.0 - Liver cell carcinoma Is this a current diagnosis for this admission?: Yes Plan: She has been transitioned to hospice. Anticipate discharge to home under hospice at the next 24 hours. (2) Hypoglycemia Is this a current diagnosis for this admission?: Yes Plan: Improved. (3) Diabetes Is this a current diagnosis for this admission?: Yes Plan: Discontinued sliding scale and metformin due to episodes of hypoglycemia. Her A1c suggests she does not need to be on diabetic medications. (4) Hypertension Is this a current diagnosis for this admission?: Yes - Time Time Spent with patient: 15-24 minutes
--- NOTE | 2019-04-14 17:17 | PDOC DISCHARGE SUMMARY ---
Impression - Admit/DC Date/PCP Admission Date/Primary Care Provider: 04/07/19 16:01 MELISSA LEBLANC PA-C Discharge Date: 04/13/19 - Discharge Diagnosis (1) Liver cancer Is this a current diagnosis for this admission?: Yes (2) Hypoglycemia Is this a current diagnosis for this admission?: Yes (3) Diabetes Is this a current diagnosis for this admission?: Yes (4) Hypertension Is this a current diagnosis for this admission?: Yes - Additional Information Resuscitation Status: Do Not Resuscitate Referrals: [facility] [Outside] Prescriptions: Lorazepam [Ativan 1 mg Tablet] 1 mg PO DAILYP PRN #10 tablet PRN Reason: Megestrol Acetate [Megace Es] 625 mg PO DAILY #2 oral.susp Home Medications: Aspirin [Ecotrin 81 mg EC Tablet] 81 mg PO DAILY 04/04/19 Esomeprazole Mag Trihydrate [Nexium] 40 mg PO DAILY 04/04/19 Levothyroxine Sodium [Synthroid 0.112 mg Tablet] 0.112 mg PO Q6AM 04/04/19 Harrison-3/Dha/Epa/Fish Oil [Harrison-3 Fish Oil 1,200 mg Sfgl] 1,200 mg PO BID 04/04/19 Sertraline HCl [Zoloft] 25 mg PO DAILY 04/04/19 Simvastatin [Zocor 20 mg Tablet] 20 mg PO QHS 04/04/19 Lorazepam [Ativan 1 mg Tablet] 1 mg PO DAILYP PRN #10 tablet 04/12/19 Megestrol Acetate [Megace Es] 625 mg PO DAILY #2 oral.susp 04/12/19 History of Present Illiness History of Present Illness: Admitting hospitalist's H&P: FREDY ABERNATHY is a 73 year old female who for the last several days has been increasing weakness and fatigue. She is also complained of some diffuse body aches. Patient has denied fever or dysuria. Patient has stage IV liver cancer and just recently finished chemotherapy. She has complained of a decreased appetite and nausea but no vomiting. Patient's oncologist recommended that she come to the hospital for several days of hydration and further evaluation to rule out infection. His other medical conditions include diabetes, hypertension. Hospital Course Hospital Course: This iss a 73-year-old female with stage IV liver cancer who was previously getting chemotherapy. Patient presented with increasing weakness and poor appetite. She was admitted for hydration. 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 She has been declining. She was also evaluated and followed closely by oncology. She was not a candidate for further cancer treatments. She will not be continuing chemotherapy and will be discharged on home hospice. Physical Exam Vital Signs: Temp Pulse Resp BP Pulse Ox 97.3 F 101 H 18 111/82 76 L 04/13/19 14:41 04/13/19 14:41 04/13/19 14:41 04/13/19 14:41 04/13/19 14:41 Intake & Output 04/12/19 04/13/19 04/14/19 06:59 06:59 06:59 Intake Total 437 300 Output Total 700 450 Balance -263 -150 Weight 221 lb 12.56 oz 220 lb 10.923 oz General appearance: PRESENT: no acute distress, well-developed, well-nourished Head exam: PRESENT: atraumatic, normocephalic Eye exam: PRESENT: conjunctiva pink, EOMI, PERRLA. ABSENT: scleral icterus Ear exam: PRESENT: normal external ear exam Mouth exam: PRESENT: moist, tongue midline Neck exam: ABSENT: carotid bruit, JVD, lymphadenopathy, thyromegaly Respiratory exam: PRESENT: clear to auscultation gricel. ABSENT: rales, rhonchi, wheezes Pulses: PRESENT: normal dorsalis pedis pul GI/Abdominal exam: PRESENT: normal bowel sounds. ABSENT: tenderness Rectal exam: PRESENT: deferred Neurological exam: PRESENT: awake, CN II-XII grossly intact. ABSENT: motor sensory deficit Results Laboratory Results: WBC 5.6 10^3/uL (4.0-10.5) 04/09/19 13:45 RBC 3.70 10^6/uL (3.72-5.28) L 04/09/19 13:45 Hgb 10.1 g/dL (12.0-15.5) L 04/09/19 13:45 Hct 30.4 % (36.0-47.0) L 04/09/19 13:45 MCV 82 fl (80-97) 04/09/19 13:45 MCH 27.4 pg (27.0-33.4) 04/09/19 13:45 MCHC 33.3 g/dL (32.0-36.0) 04/09/19 13:45 RDW 21.3 % (11.5-14.0) H 04/09/19 13:45 Plt Count 340 10^3/uL (150-450) 04/09/19 13:45 Lymph % (Auto) 10.3 % (13-45) L 04/09/19 13:45 [place] % (Auto) 8.5 % (3-13) 04/09/19 13:45 Eos % (Auto) 2.5 % (0-6) 04/09/19 13:45 Baso % (Auto) 0.7 % (0-2) 04/09/19 13:45 Absolute Neuts (auto) 4.4 10^3/uL (1.7-8.2) 04/09/19 13:45 Absolute Lymphs (auto) 0.6 10^3/uL (0.5-4.7) 04/09/19 13:45 Absolute Monos (auto) 0.5 10^3/uL (0.1-1.4) 04/09/19 13:45 Absolute Eos (auto) 0.1 10^3/uL (0.0-0.6) 04/09/19 13:45 Absolute Basos (auto) 0.0 10^3/uL (0.0-0.2) 04/09/19 13:45 Seg Neutrophils % 78.0 % (42-78) 04/09/19 13:45 PT 15.5 SEC (11.4-15.4) H 04/04/19 13:45 INR 1.22 04/04/19 13:45 APTT 37.6 SEC (23.5-35.8) H 04/04/19 13:45 VBG pH 7.40 (7.30-7.42) 04/04/19 15:32 VBG pCO2 44.8 mmHg (35-63) 04/04/19 15:32 VBG HCO3 26.9 mmol/L (20-32) 04/04/19 15:32 VBG Base Excess 1.6 mmol/L 04/04/19 15:32 Sodium 128.3 mmol/L (137-145) L 04/09/19 13:45 Potassium 4.6 mmol/L (3.6-5.0) 04/09/19 13:45 Chloride 103 mmol/L (98-107) 04/09/19 13:45 Carbon Dioxide 19 mmol/L (22-30) L 04/09/19 13:45 Anion Gap 6 (5-19) 04/09/19 13:45 BUN 29 mg/dL (7-20) H 04/09/19 13:45 Creatinine 1.00 mg/dL (0.52-1.25) 04/09/19 13:45 Est GFR ( Amer) > 60 (>60) 04/09/19 13:45 Est GFR (MDRD) Non-Af 54 (>60) L 04/09/19 13:45 Glucose 86 mg/dL (75-110) 04/09/19 13:45 POC Glucose 52 mg/dL (70-110) L 04/13/19 11:30 Hemoglobin A1c % 5.6 % (4.7-6.0) 04/05/19 06:29 Lactic Acid 2.2 mmol/L (0.7-2.1) H 04/04/19 15:32 Calcium 8.9 mg/dL (8.4-10.2) 04/09/19 13:45 Magnesium 1.6 mg/dL (1.6-2.3) 04/05/19 06:29 Total Bilirubin 1.4 mg/dL (0.2-1.3) H 04/04/19 12:45 Direct Bilirubin 0.6 mg/dL (0.0-0.4) H 04/04/19 12:45 Neonat Total Bilirubin Not Reportable 04/04/19 12:45 Neonat Direct Bilirubin Not Reportable 04/04/19 12:45 Neonat Indirect Bili Not Reportable 04/04/19 12:45 AST 38 U/L (14-36) H 04/04/19 12:45 ALT 19 U/L (<35) 04/04/19 12:45 Alkaline Phosphatase 288 U/L (38-126) H 04/04/19 12:45 Ammonia 13.3 umol/L (9-33) 04/07/19 16:07 Troponin I < 0.012 ng/mL 04/04/19 12:45 Total Protein 7.9 g/dL (6.3-8.2) 04/04/19 12:45 Albumin 2.8 g/dL (3.5-5.0) L 04/04/19 12:45 Lipase 62.2 U/L (23-300) 04/04/19 12:45 TSH 3.56 uIU/mL (0.47-4.68) 04/09/19 13:45 Urine Color MEHDI 04/05/19 05:20 Urine Appearance SLIGHTLY-CLOUDY 04/05/19 05:20 Urine pH 5.0 (5.0-9.0) 04/05/19 05:20 Ur Specific [place] 1.023 04/05/19 05:20 Urine Protein 100 mg/dL (NEGATIVE) H 04/05/19 05:20 Urine Glucose (UA) NEGATIVE mg/dL (NEGATIVE) 04/05/19 05:20 Urine Ketones TRACE mg/dL (NEGATIVE) H 04/05/19 05:20 Urine Blood SMALL (NEGATIVE) H 04/05/19 05:20 Urine Nitrite NEGATIVE (NEGATIVE) 04/05/19 05:20 Urine Bilirubin SMALL (NEGATIVE) H 04/05/19 05:20 Urine Urobilinogen 4.0 mg/dL (<2.0) H 04/05/19 05:20 Ur Leukocyte Esterase NEGATIVE (NEGATIVE) 04/05/19 05:20 Urine WBC (Auto) 4 /HPF 04/05/19 05:20 Urine RBC (Auto) 10 /HPF 04/05/19 05:20 Squamous Epi Cells Auto <1 /HPF 04/05/19 05:20 Urine Mucus (Auto) OCC /LPF 04/05/19 05:20 Urine Ascorbic Acid NEGATIVE (NEGATIVE) 04/05/19 05:20 04/04/19 12:45 Troponin I < 0.012 Impressions: Chest X-Ray 04/04/19 11:56 IMPRESSION: No acute cardiopulmonary process. Head MRI 04/06/19 00:00 IMPRESSION: Very limited study due to motion artifact. Old left frontal craniotomy with 2 cm area of encephalomalacia in the anterior left frontal lobe. Superior to this area, a 5 mm enhancing left frontal cortical nodule is present. This could represent a tiny metastatic lesion. Tiny cortical infarct is possible. Repeat MRI is recommended when the patient is able to comply with imaging. EVIDENCE OF ACUTE STROKE: No large territory infarct. Findings as above. Stroke Is this a Stroke Patient?: No Acute Heart Failure - Is this a Heart Failure Patient?: No
== END 2019-04-13 15:43 | disposition hospice, home (50) | DRG 641 ==
LOC: ER 11:43 → EH 16:20 → INTOOBSV 16:20 → 5 18:26 → OBSVTOIN 04-07 16:01
PROVIDERS: ADMIT Internal Medicine; ATTEND Internal Medicine
DX: E86.0 Dehydration (principal); C22.0 Liver cell carcinoma; C79.31 Secondary malignant neoplasm of brain; I95.9 Hypotension, unspecified; E11.649 Type 2 diabetes mellitus with hypoglycemia without coma; I10 Essential (primary) hypertension; G93.89 Other specified disorders of brain; Z79.84 Long term (current) use of oral hypoglycemic drugs; Z79.82 Long term (current) use of aspirin; Z79.899 Other long term (current) drug therapy
CPT/HCPCS: 36415; 70553; 71045; 80048; 80053; 81001; 82140; 82803; 82962; 83036; 83605; 83690; 83735; 84443; 84484; 85025; 85610; 85730; 87040; 87086; 93005; 93010; 96361; 96374; 99285; A9576; G0378; J0696; J1644; J2270; J3480; J3490; J7030; J7060